=== PATIENT | female | born 1970 | race Caucasian/White ===

== ENCOUNTER 2020-04-28 10:56 | Outpatient (CLI) | payer BC, SELFPAY ==
--- NOTE | 2020-04-28 11:00 | MM_ITS ---
WS: [id number] BILATERAL SCREENING DIGITAL MAMMOGRAM WITH CAD HISTORY: SCREENING COMPARISON: 03/14/2019 and 03/03/2018 Bilateral CC and MLO views submitted. Computer aided detection analyzed. Breast composition: There are scattered areas of fibroglandular density. No suspicious masses, microc alcifications or architectural distortion. MM/[place] [id number] IMPRESSION: BI-RADS: 1-Negative FOLLOW UP: 1 Year Follow-up
== END 2020-04-28 10:57 | disposition home or self-care (01) ==
LOC: RADSHAW 10:59
PROVIDERS: PCP Family Medicine; Visit Provider Family Medicine
DX: Z12.31 Encounter for screening mammogram for malignant neoplasm of breast (principal); Z12.4 Encounter for screening for malignant neoplasm of cervix
CPT/HCPCS: 77067; 88175

== ENCOUNTER → 2020-05-14 10:54 | Outpatient (BNVA) | payer BC, SELFPAY | PROVIDERS: PCP Family Medicine; Visit Provider Internal Medicine | DX: R79.89 Other specified abnormal findings of blood chemistry (principal); I10 Essential (primary) hypertension; Z86.39 Personal history of other endocrine, nutritional and metabolic disease; Z98.890 Other specified postprocedural states | CPT/HCPCS: 99204 ==

== ENCOUNTER 2021-05-20 07:48 | Outpatient (CLI) | payer BC, SELFPAY ==
--- NOTE | 2021-05-20 07:52 | MM_ITS ---
WS: [id number] SCREENING DIGITAL MAMMOGRAM WITH CAD HISTORY: Screening. COMPARISON: 04/28/2020 and 03/14/2019 Bilateral CC and MLO views submitted. Computer aided detection analyzed. Breast composition: There are scattered areas of fibroglandular density. No suspicious masses, microc alcifications or architectural distortion. MM/[place] [id number] IMPRESSION: BI-RADS: 1-Negative FOLLOW UP: 1 Year Follow-up
== END 2021-05-20 07:49 | disposition home or self-care (01) ==
LOC: RADSHAW 07:50
PROVIDERS: PCP Family Medicine; Visit Provider Family Medicine
DX: Z12.31 Encounter for screening mammogram for malignant neoplasm of breast (principal)
CPT/HCPCS: 77067

== ENCOUNTER → 2021-09-24 07:35 | Outpatient (BNVA) | payer BC, SELFPAY | PROVIDERS: PCP Family Medicine; Visit Provider Urology | DX: R31.0 Gross hematuria (principal) | CPT/HCPCS: 81003 ==

== ENCOUNTER 2021-11-20 09:12 | Outpatient (CLI) | payer BC, SELFPAY ==
--- NOTE | 2021-11-20 09:30 | CT_ITS ---
WS: [id number] CT ABDOMEN PELVIS TECHNIQUE: Noncontrast CT of the abdomen and contrast-enhanced CT of the abdomen and pelvis with lior nal and sagittal reformatted images. CLINICAL INFORMATION: Gross Hematuria COMPARISON: CT March 13, 2014 DLP: 3069.[address] scans at [facility] [place] use at least one of these dose optimization techniques: automated e xposure control; mA and/or kV adjustment per patient size (includes targeted exams where dose is matc hed to clinical indication); or iterative reconstruction. FINDINGS: Multiple nonobstructing RIGHT calyceal tip calculi progressed compared 2014. Multiple subcentimeter L EFT calyceal tip calculi. No obstructing renal or ureteral calculi. Normal renal parenchymal enhancement. Bilateral renal cysts largest in the RIGHT measuring 1.7 CM. So me are too small to characterize. Normal adrenal glands. Normal liver. Cholecystectomy clips. Normal GE junction. Normal spleen. Normal pancreatic parenchymal enhancement. Normal celiac and SMA.Normal appendix in the RIGHT lower quadrant. Normal caliber abdominal aorta. Normal sigmoid colon. Tiny fat-containing umbilical hernia. No abdomi nal or pelvic lymphadenopathy. No inguinal lymphadenopathy. Central disc protrusion L4-L5 with modera te central canal stenosis and impingement traversing L5 nerve roots bilaterally. This appears progres sed compared 2014. Mild disc bulging L2-L3 and L3-L4. Lung bases are well aerated. CT/CT abdomen pelvis wo/w [id number] IMPRESSION: 1. Multiple subcentimeter nonobstructing calyceal tip calculi bilaterally. 2. Normal renal parenchymal enhancement. No hydronephrosis. Bilateral renal cy sts. Largest in the RIGHT measuring 1.7 CM. Some of the low-attenuation renal l esions are too small to characterize. 3. Prior cholecystectomy. 4. Central disc protrusion L4-L5 with moderate central canal stenosis and impi ngement traversing L5 nerve roots bilaterally. This appears progressed compared to 2014. This can be further evaluated with MRI.
[2021-11-20] MEDS: iohexol 350 mg/mL 100 mL Btl IV (10:42)
== END 2021-11-20 09:13 | disposition home or self-care (01) ==
PROVIDERS: PCP Family Medicine; Visit Provider Family Medicine
DX: N30.21 Other chronic cystitis with hematuria (principal)
CPT/HCPCS: 74178; 81003; 87086; 88112

== ENCOUNTER → 2022-03-02 15:49 | Outpatient (BNVA) | payer BC, SELFPAY | PROVIDERS: PCP Family Medicine; Visit Provider Internal Medicine | DX: Z98.890 Other specified postprocedural states (principal); R79.89 Other specified abnormal findings of blood chemistry | CPT/HCPCS: 80053; 82310; 83970; 84100 ==

== ENCOUNTER 2022-06-30 15:04 | Outpatient (CLI) | payer BC, SELFPAY ==
--- NOTE | 2022-06-30 15:22 | MR_ITS ---
WS: [id number] MRI BRAIN WITH HIGH-RESOLUTION IMAGING THROUGH THE INTERNAL AUDITORY CANALS WITHOUT AND WITH CONTRAST HISTORY: Unspecified SENSORINEURAL HEARING LOSS, SUDDEN HEARING LOSS LT EAR COMPARISON: None available. TECHNIQUE: Multiplanar, multisequence imaging is performed through the brain. Additional 3 mm imaging performed in multiple planes through the internal auditory canal. Postcontrast imaging with 20 ml's of MultiHance. No acute intracranial hemorrhage, midline shift, edema or mass effect. Diffusion-weighted images are normal. No prior infarct or T2 signal abnormalities within the brain pa renchyma. There is no mass effect at the cerebellopontine angle. Ventricles and extra-axial spaces are normal. No inferior displacement of the cerebellar tonsils. On the postcontrast imaging there is a nonenhanci ng mass in the base of the sella turcica. Mass is just slightly lobulated and mildly heterogeneous me asuring 10 x 8 x 4 mm. No deviation of the optic chiasm or infundibulum. Mass is centered central and just to the LEFT of midline. Intensely enhancing extra-axial mass along the RIGHT frontal dura there is a small axial tail. This m ass measures 9 x 8 x 8 mm and is most consistent with a hemangioma. No cortical edema. There is very slight contact and displacement of the frontal lobe cortex. No signal abnormality within the bone. No additional extra-axial masses. Internal and external auditory canals: Unremarkable. Cranial nerves VII and VIII complexes: Unremarkable. No enhancement or mass. Cerebellopontine angles: Normal. Paranasal sinuses: Small mucous retention cyst LEFT maxillary sinus. Otherwise sinuses are clear. Mastoid air cells: Normal. Calvarium and scalp: Normal. Visualized [place] and dural venous sinuses demonstrate no abnormality. MR/MR iac's wo/w con* [id number] IMPRESSION: 1. No signal abnormality or mass at the internal auditory canals. 2. Mildly heterogeneous mass associated with pituitary gland measures 9 x 8 x 8 mm. Most consistent with pituitary microadenoma. With no prior studies recomm end follow-up MRI brain with contrast dedicated pituitary gland in 3 months to document long-term stability. 3. RIGHT frontal extra-axial mass consistent with a meningioma measures 9 x 8 x 8 mm.
== END 2022-06-30 15:05 | disposition home or self-care (01) ==
PROVIDERS: PCP Family Medicine; Visit Provider Otolaryngology
DX: H91.22 Sudden idiopathic hearing loss, left ear (principal); E23.6 Other disorders of pituitary gland
CPT/HCPCS: 70553; A9577

== ENCOUNTER 2023-10-13 13:37 | Outpatient (RCR) | payer BC, SELFPAY | END 2023-10-16 23:59 | disposition home or self-care (01) | LOC: SPT 13:37 | PROVIDERS: PCP Internal Medicine Hematology & Oncology; Visit Provider Family Medicine | DX: I89.0 Lymphedema, not elsewhere classified (principal) | CPT/HCPCS: 97161 ==

== ENCOUNTER 2023-10-17 06:00 | Outpatient (RCR) | payer BC, SELFPAY | END 2023-11-15 23:59 | disposition home or self-care (01) | LOC: SPT 06:00 | PROVIDERS: PCP Internal Medicine Hematology & Oncology; Visit Provider Family Medicine | DX: I89.0 Lymphedema, not elsewhere classified (principal) | CPT/HCPCS: 97140 ==

== ENCOUNTER 2024-11-15 15:20 | Outpatient (CLI) | payer BC, SELFPAY ==
--- NOTE | 2024-11-15 15:20 | MM_ITS ---
WS: [id number] BILATERAL 3D TOMOSYNTHESIS DIGITAL SCREENING MAMMOGRAPHY WITH CAD CLINICAL INFORMATION: SCREENING HISTORY: Screening mammogram. No current complaints. COMPARISON: 2020 TECHNIQUE: Bilateral CC and MLO views. FINDINGS: Scattered fibroglandular densities bilaterally. No suspicious focal mass, asymmetry, calcifications, or architectural distortion. No evidence of malignancy. Vascular calcifications. MM/MM scr tomosynthesis [id number] IMPRESSION: DENSITY: There are scattered areas of fibroglandular density. BI-RADS: 2 - Benign. FOLLOW UP: 1 Year Follow-up Recommend return to annual screening mammography.
== END 2024-11-15 15:21 | disposition home or self-care (01) ==
LOC: MOBLMAM 15:22
PROVIDERS: PCP Family Medicine; Visit Provider Family Medicine
DX: Z12.31 Encounter for screening mammogram for malignant neoplasm of breast (principal); R92.323 Mammographic fibroglandular density, bilateral breasts; R92.1 Mammographic calcification found on diagnostic imaging of breast
CPT/HCPCS: 77063; 77067

== ENCOUNTER 2025-06-17 05:44 | Inpatient (IN) | payer BC, SELFPAY ==
[2025-06-17] VITALS (10 sets, daily range): BP systolic 119–184; BP diastolic 66–97; PULSE 100–114; RESP 16–24; TEMP 36.6–36.8; O2SAT 87–97; BMI 34.8; BMI 37.3
--- OUTSIDE RECORDS SUMMARY | 2025-06-17 05:50 | XMS_ITS | Continuity of Care Document ---
Author Organization [facility] [place] [facility], L.LNavarroCNavarro, [facility] ([facility]) Address [address] [place] [address] Care Team Providers Care Hairspring Staker Name Role Phone LILIANA DE JESUS Primary Care Provider Unavailabl e Assessment No assessment recorded. Plan of Treatment Reminders Order Date Submit Date Provider Last Modified By Organization Details Last Modified Time Details Appointments None record ed. Lab None record ed. Referral None record ed. Procedures None record ed. Surgeries None record ed. Imaging None record ed. Medication Orders None record ed. Patient TargetsNo targets recorded. Patient InstructionsNo instructions recorded. Reason for Referral None Reported. Problems Name Problem SNOMED Code Status Onset Date Resolution Date Notes Provider Name and Address Organization Details Recorded Time Hemorrho idectomy Completed 200912/28/2024 Hemorrho idectomy ; Date: 2009; Recorded 05/10/20 11:11AM by Liban Mercado, Office Visit; Promoted ; acuity set as *; LIBAN stanley [facility] 5 16:30:31 Ganglion cyst Active 2021 Gangliio n Cyst; R Long Finger, excised 1998, Dr. Barajas.; 05/10/20 11:11AM by Liban Mercado, Office Visit; Promoted ; acuity set as *; LIBAN stanley [facility], [facility].L[facility]CN[facility] 5 16:30:19 Herpes labialis 7079332 Active 2021 Herpes Labialis ; Recorded 10/24/20 22 11:11AM by Liban Mercado, Office Visit; Promoted ; acuity set as *; LIBAN stanley [facility], [facility] 5 16:30:19 Family planning surveill ance Active 2022 DEPO-PRO VERA CONTRACE PTION, ENCOUNTE R FOR INJECTIO N; Recorded 09/22/19 23 12:25PM by Anjelica fitzpatrick, Injectio n Only; Promoted ; acuity set as *; DEPO-[place] OVERA CONTRACE PTION, ENCOUNTE R FOR INJECTIO N; Recorded 01/15/20 2:50PM by Asmita Booker LPN, Annotati on/Adden dum; Promoted ; acuity set as *; ; Start Date : 01/15/20 DEPO CONTRACE PTION; Recorded 01/15/20 2:50PM by Asmita Booker LPN, Annotati on/Adden dum; Promoted ; acuity set as *; ; Start Date : 01/15/20 LIBAN stanley [facility] 5 16:30:19 Recurren t hematuri a 861277111 [facility] 16:30:19 Urinary incontin ence 000741406 Active [address] [facility] 5 16:30:19 Venous stasis edema of left lower limb 54954602218 232640 Active [address] [facility] 5 16:30:19 Lymphede ma of left lower limb 10024429601 554390 Active [address] [facility] 5 16:30:19 [facility] hyperten viraj 99980015 [facility] 20[facility] 16:30:19 Pain of left knee joint 43728870178 4107 Active 2023 [facility] 16:30:19 Problem Notes None recorded. Procedures Surgical History Date Name Laterality Status Provider Name and Address Organization Details Recorded Time 12/08/19 25 colonoscopy completed [address], [address], [facility], ShengCNavarro 12/09/2024 15:43:28 11/16/19 25 Most Recent Mammogram completed [facility], [place] 11/15/2024 16:49:09 11/16/19 25 mammography completed [address], [id number], LBrenda 11/15/2024 17:07:32 08/18/19 08 operation on parathyroid gland completed [facility], LNavarroLNavarroCNavarro 11/15/2024 16:57:46 arthroscopy of knee completed [facility], LNavarroLNavarroCNavarro 11/15/2024 16:57:55 reconstruction of vagina completed [facility], MarkellLNavarroCNavarro 11/15/2024 16:58:27 cholecystectomy completed [facility], L.LNavarroCNavarro 11/15/2024 16:58:33 excision of ganglion cyst completed [facility], LNavarroLNavarroCNavarro 11/15/2024 16:59:00 Imaging Results None recorded. Procedure Notes None recorded. Medical Equipment None Reported. Allergies Allergen ID Allergen Name Allergen Category Reaction Reaction Severity Criticality Documentation Date Start Date Code Code System Note Provider Name and Address Organization Details Recorded Time 75314 Bactrim medicatio n Not available Not available Not available 02/12/2023 51985 9 RxNorm Comme nt: Recor ded 05/10 11:11 AM by Eliecer pierre, Offic e Visit ; Gilles young; Vaughn allen ce: *; Reaso n: Drug aller gy; ; Not Available [facility] 3 02:29:02 66679 Substance with sulfonami de structure and antibacte rial mechanism of action (substanc e) medicatio n Not available Not available Not available 07/03/2023 [address] [facility], [facility] 3 17:06:11 Medications Name Sig Start Date Stop Date Status Note LastModified by Organization Details LastModified Time amoxicill in 500 mg capsule TAKE 1 CAPSULE BY MOUTH EVERY 8 HOURS UNTIL GONE active Not Available Not Available No t Available cefuroxim e axetil 250 mg tablet TAKE 1 TABLET BY MOUTH EVERY 12 HOURS FOR 7 DAYS 11/15 completed Not Available Not Available Not Available prednison e 20 mg tablet TAKE 2 TABLETS BY MOUTH EVERY DAY FOR 5 DAYS 09/22 completed Not Available Not Available Not Available fluoroura cil 5 % topical cream APPLY THIN LAYER TO AFFECTED AREAS TWICE DAILY FOR 14 DAYS. active Not Available Not Available No t Available ciproflox acin 250 mg tablet TAKE 1 TABLET BY MOUTH TWICE A DAY 09/22 completed Not Available Not Available Not Available aspirin 81 mg tablet,de layed release daily active 0; Recorded 05/10/20 22 11:11AM by Liban Mercado, Office Visit; Not Available Not Available Not Available nitrofura ntoin macrocrys roberta 100 mg capsule TAKE 1 CAPSULE BY MOUTH TWICE A DAY FOR 7 DAYS 12/27 completed Not Available Not Available Not Available lisinopri l 10 mg tablet TAKE 1 TABLET BY MOUTH EVERY DAY 2024 active Not Available Not Available Not Avai lable fluticaso ne propionat e 50 mcg/actua tion nasal spray,roger pension daily 2021 active Recorded 04/16/20 22 3:48PM by Liban Mercado, Office Visit; Refill Quantity : 0; Not Available Not Available Not Available medroxypr ogesteron e 150 mg/mL intramusc ular suspensio n Inject 1 mL every 3 months by intramus cular route as directed . 2024 active next injectio n due 08/27-08/19 4 pt is aware and calendar was given. Pt. brought med. AV Not Available Not Available Not Available amoxicill in 875 mg-potass ium clavulana te 125 mg tablet TAKE 1 TABLET BY MOUTH EVERY 12 HOURS FOR 10 DAYS 09/22 completed Not Available Not Available Not Available medroxypr ogesteron e 150 mg/mL intramusc ular syringe INJECT 1ML INTRAMUS CULARLY EVERY 3 MONTHS active Not Available Not Available No t Available nitrofura ntoin monohydra te/macroc rystals 100 mg capsule TAKE 1 CAPSULE BY MOUTH TWICE A DAY FOR 7 DAYS 11/15 completed Not Available Not Available Not Available magnesium Daily 12/27 completed 0; Recorded 05/10/20 22 11:11AM by Liban Mercado, Office Visit; Not Available Not Available Not Available cranberry Daily active 0; Recorded 05/10/20 22 11:11AM by Liban Mercado, Office Visit; Not Available Not Available Not Available Vitamin D daily active 0; Recorded 05/10/20 22 11:11AM by Liban Mercado, Office Visit; Not Available Not Available Not Available Multivita mins daily 12/27 completed 0; Recorded 05/10/20 22 11:11AM by Liban Mercado, Office Visit; Not Available Not Available Not Available Guaifenis en/Pseudo ephedrine two times daily 12/27 completed Recorded 05/10/20 22 11:11AM by Liban Mercado, Office Visit; Refill Quantity : 18; Tablet; Not Available Not Available Not Available Xarelto 10 mg tablet TAKE 1 TABLET BY MOUTH EVERY DAY 2024 active Not Available Not Available Not Avai lable Eliquis 2.5 mg tablet TAKE 1 TABLET BY MOUTH TWICE A DAY 12/27 completed Not Available Not Available Not Available Eliquis two times daily 09/22 completed Recorded 09/10/19 23 7:54AM by Liliana De Jesus MD, Refill Request; Refill Quantity : 180; Tablet; Not Available Not Available Not Available Mucus D 60 mg-600 mg tablet,ex tended release TAKE 1 TABLET BY MOUTH TWICE A DAY active Not Available Not Available No t Available Vitals None Recorded Social History Question Answer Notes LastModified by Mashups Details LastModified Time Tobacco Smoking Status Never Smoker ANJELICA AMESCECY stanley, [facility] 09/23/2023 14:02:14 What Was The Date Of Your Most Recent Tobacco Screening? 11/15/2024 [email or web address] Information not available 11/15/2024 Sex: Unknown Functional Status Question Answer Note LastModified by Mashups Details LastModified Time Do you use any illicit or recreational drugs? No [email or web address] Information not available 11/15/2024 What is your level of alcohol consumption? Occasional [email or web address] Information not available 09/23/2023 Mental Status None recorded. Family History Nothing Reported. Medical History Condition Response Allergies/Hayfever Y Heart Problems N Coronary Artery Disease N Gout N Blood Diseases N Kidney Stones N Blood Transfusion N Breast Cancer N Thyroid Problems Y GI Problems N Lung Disease N COPD N Depression N ADD/ADHD N Eating Disorder N Skin Problems Y Breast Problem N Anemia N Constipation N Anesthesia Complications N Mental Illness N Ovarian Cancer N Diabetes N Anxiety Disorder N Muscle, Joint, or Bone Problems N Vision or Eye Problems Y Seizures/Epilepsy N Arthritis Y Tuberculosis N Eczema N Cancer Y Diverticulitis N Stroke N Asthma N Endometriosis Y Bladder or Kidney Problems Y Reflux/GERD N High Cholesterol N Hepatitis N Liver Disease N Heart Disease N Pulmonary Embolism N Fibromyalgia N Headaches N Hypertension Y Osteoporosis N Kidney Disease N Gynecological History Statement/Question Response Most Recent Mammogram 11/15/2024 Obstetrics History GPAL:G 0 P 0 0 0 0 Immunizations Vaccine Type Date Status Note Provider Nam e and Address Organization Details Recorded Time Tdap 5 completed ELIZABETH stanley [facility] 11/15/2024 17:34:07 Pneumococcal conjugate PCV20, polysaccharide [id number] conjugate, adjuvant, PF 5 completed ELIZABETH stanley [facility] 11/15/2024 17:34:29 Tdap 8 completed Not Available [facility] 02/12/2023 02:50:42 zoster recombinant 2 completed LIBAN stanley, [facility] 12/28/2023 14:06:43 zoster recombinant 2 completed LIBAN IZQUIERDORIS null, [facility] 12/28/2023 14:06:44 COVID-19, mRNA, LNP-S, PF, 100 mcg/0.5mL dose or 50 mcg/0.25mL dose 1 completed LIBAN IZQUIERDORIS null, [facility] 12/28/2023 14:06:44 COVID-19, mRNA, LNP-S, PF, 100 mcg/0.5mL dose or 50 mcg/0.25mL dose 1 completed LIBAN IZQUIERDOKEN stanley, [facility] 12/28/2023 14:06:44 Past Encounters Encounter ID Performer Location Encounter Start Date Encounter Closed Date Diagnosis/Indication Diagnosis SNOMED-CT Code Diagnosis ICD10 Code Diagnosis IMO Codes Diagnosis Note [id number] Liliana De Jesus MD [facility] ([facility]) [address] [place] [phone] 03/26/2025 12:38:18 03/26/2025 13:37:40 Health Concerns Section Related Observation LastModified by Organization Detai ls LastModified Time None Recorded Concern Status LastModified by Organization Details LastModified Time None Recorded Payers Encounter Date Sequence Insurance Name Policy Number Policy [place] Covered Member ID [place] Member ID Guarantor Name 03/26/2025 1 [place] [id number] 2 Sierra R Roverto [id number] Sierra R Roverto OBGyn Episode No OBEpisode recorded.
--- OUTSIDE RECORDS SUMMARY | 2025-06-17 05:50 | XMS_ITS | Patient Health Record ---
Author Organization [facility] Address [address] [place] [address] Care Team Providers Care Director Of Property Management Name Role Phone Imer De Jesus Primary Care Provider Anjelica Dougherty Unavailable [phone] Dread Avina Unavailable Unavailable Allergies Allergen (clinical drug ingredient) Drug/Non Drug Allergy documented on EMR Reaction Allergy Type Onset Date Status Substance with sulfonamide structure and antibacterial mechanism of action (substance) Sulfa Antibiotics Unknown Drug Allergy Active Reason For Referral No Information Medications Medication SIG (Take, Route, Frequency, Duration) Notes Start Date End Date Status Aspirin 81 81 MG Tablet Delayed Release 1 tablet Orally Once a day Active Cranberry 500 MG Capsule as directed Orally Active Magnesium Active Vitamin D Active Apple Cider Vinegar Active Macrobid 100 MG Capsule 1 capsule with f ood Orally every 12 hrs Active Multi Adult Gummies - Tablet Chewable as directed Orally Active Lisinopril Active Eliquis 2.5 MG Tablet as directed Orally BID Active Social History Tobacco Use: Social History Observation Description Date Details (start date - stop date) Never Smoker NA - NA Social History Drugs/Alcohol: Social Info Question Answer Notes Alcohol Screen (Audit-C) Did you have a drink containing alcohol in the past year? Yes How often did you have a drink containing alcohol in the past year? 2 to 3 times a week (3 points) How many drinks did you have on a typical day when you were drinking in the past year? 1 or 2 drinks (0 point) Points 3 Interpretation Positive Drugs Have you used drugs other than those for medical reasons in the past 12 months? No Tobacco Use: Social Info Question Answer Notes xTobacco Use/Smoking Are you a nonsmoker Problems Problem Type SNOMED Code ICD Code Onset Dates Problem Status W/U Status Risk Notes Problem Gross hematuria (656967903) Gross hematuria (R31.0) Active confirmed Problem Nephrolithiasis (88044437) Nephrolithiasis (N20.0) Active confirmed Problem Hyperparathyroidism (21360695) Hyperparathyroidism (E21.3) Active confirmed Problem Recurrent nephrolithiasis (2757859698142800) Recurrent nephrolithiasis (N20.0) Active confirmed Problem Medullary cystic kidney (322560627) Medullary sponge kidney of both kidneys (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) Active confirmed Problem Kidney stone (28092749) Bilateral kidney stones (N20.0) Active confirmed Problem Medullary sponge kidney (530496407) Medullary sponge kidney (Q61.5) Active confirmed Problem Hypoparathyroidism (37522260) S/P parathyroidectomy (E89.2) Active confirmed Plan Of Treatment Pending Test Test Name Order Date Basic Metabolic Panel (BMP) 95157 2022 Basic Metabolic Panel (BMP) 44261 2022 Uric Acid (B) 77367 11/01/2022 Uric Acid (B) 40797 11/01/2022 Insurance Providers Payer Name Payer Address Payer Phone Subscriber Number Group Number Insured Name Patient Relationship to Insured Coverage Start Date Coverage End Date [place] [address] [place] [address] [id number] Sierra Layne Self - patient is the insured Medical (General) History Medical History History ICD Code mumps Chicken Pox Arthritis skin cancer hypertension Back Trouble hemorrhoids chronic bladder infections Surgical History Surgery Date(Month/Year) cholecystectomy - [place], [place] parathyroidectomy - [facility] 8 (L) knee clean up 05/2011 (R) hand cyst Eyelid - [place] - [facility] [place] Hospitalization History Reason Date(Month/Year) see above
--- OUTSIDE RECORDS SUMMARY | 2025-06-17 05:51 | XMS_ITS | Continuity of Care Document ---
Author Organization [facility] Shannon, L.LNavarroCNavarro, [facility] ([facility]) Address [address] [place] [address] Care Team Providers Care Wharf Tender Head Name Role Phone LILIANA DE JESUS Primary [...] ; acuity set as *; LIBAN stanley [facility], L.L.CNavarro 5 16:30:31 Ganglion cyst Active 2021 Gangliio n Cyst; R Long Finger, excised 1998, Dr. Barajas.; 05/10/20 11:11AM by Liban Mercado, Office Visit; Promoted ; acuity set as *; LIBAN stanley [facility], L.L.CNavarro 5 16:30:19 Herpes labialis 3637791 Active 2021 Herpes Labialis ; Recorded 10/24/20 22 11:11AM by Liban Mercado, Office Visit; Promoted ; acuity set as *; LIBAN stnaley [facility], L.L.CNavarro 5 16:30:19 Family planning surveill ance Active 2022 DEPO-PRO VERA CONTRACE PTION, ENCOUNTE R FOR INJECTIO N; Recorded 09/22/19 23 12:25PM by Anjelica fitzpatrick, Injectio n Only; Promoted ; acuity set as *; DEPO-CA OVERA CONTRACE PTION, ENCOUNTE R FOR INJECTIO N; Recorded 01/15/20 2:50PM by Asmita Booker LPN, Annotati on/Adden dum; Promoted ; acuity set as *; ; Start Date : 01/15/20 DEPO CONTRACE PTION; Recorded 01/15/20 2:50PM by Asmita Booker LPN, Annotati on/Adden dum; Promoted ; acuity set as *; ; Start Date : 01/15/[address] [facility], L.L.C. 5 16:30:19 Recurren t hematuri a 391780913 [facility] 16:30:19 Urinary incontin ence 782761392 Active 2023 LIBAN MERCADO [facility], [facility] 5 16:30:19 Venous stasis edema of left lower limb [id number] 531931 Active 2023 LIBAN MERCADO [facility] L[facility] 5 16:30:19 Lymphede ma of left lower limb 66831413982 552503 Active 2023 LIBAN MERCADO [facility] L[facility] 5 16:30:19 Essentia l hyperten viraj 42230510 [facility] 16:30:19 Pain of left knee joint 44699697733 4107 Active 2023 [facility] MarkellLMinda 16:30:19 Problem Notes None recorded. Procedures Surgical History Date Name Laterality Status Provider Name and Address Organization Details Recorded Time 12/08/19 25 colonoscopy completed [address], [address], [facility], ShengCNavarro 12/09/2024 15:43:28 11/16/19 25 Most Recent Mammogram completed [facility], Bozena 11/15/2024 16:49:09 11/16/19 25 mammography completed [address], [id number], LBernda 11/15/2024 17:07:32 08/18/19 08 operation on parathyroid gland completed [facility], LNavarroLNavarroCNavarro 11/15/2024 16:57:46 arthroscopy of knee completed [facility], LNavarroLNavarroCNavarro 11/15/2024 16:57:55 reconstruction of vagina completed [facility], MarkellLNavarroCNavarro 11/15/2024 16:58:27 cholecystectomy completed [facility], L.LNavarroCNavarro 11/15/2024 16:58:33 excision of ganglion cyst completed [facility], LNavarroLNavarroCNavarro 11/15/2024 16:59:00 Imaging Results None recorded. Procedure Notes None recorded. Medical Equipment None Reported. Allergies Allergen ID Allergen Name Allergen Category Reaction Reaction Severity Criticality Documentation Date Start Date Code Code System Note Provider Name and Address Organization Details Recorded Time 37830 Bactrim medicatio n Not available Not available Not available 02/12/2023 49287 9 RxNorm Comme nt: Recor ded 05/10 11:11 AM by Eliecer pierre, Offic e Visit ; Gilles young; Vaughn allen ce: *; Reaso n: Drug aller gy; ; Not Available [facility] 3 02:29:02 87442 Substance with sulfonami de structure and antibacte rial mechanism of action (substanc e) medicatio n Not available Not available Not available 07/03/2023 91208 8003 SNOMED Hanna Polk [facility], [facility] 3 17:06:11 Medications Name Sig Start Date [...] Social History Question Answer Notes LastModified by TextualAdsizCapptain Details LastModified Time Tobacco Smoking Status Never Smoker ANJELICA AMESCECY stanley, [facility], L[facility] 09/23/2023 14:02:14 What Was The Date Of Your Most Recent Tobacco Screening? 11/15/2024 [email or web address] Information not available 11/15/2024 Sex: Unknown Functional Status Question Answer Note LastModified by Trunkbow Details LastModified Time Do you use any illicit or recreational drugs? No [email or web address] Information not available 11/15/2024 What is your level of alcohol consumption? Occasional [email or web address] Information not available 09/23/2023 Mental Status None recorded. Family History Nothing Reported. Medical History Condition Response Coronary Artery Disease N Gout N Kidney Stones N Blood Diseases N Breast Cancer N Blood Transfusion N COPD N Depression N Lung Disease N Breast Problem N Anesthesia Complications N Anxiety Disorder N Muscle, Joint, or Bone Problems N Vision or Eye Problems Y Arthritis Y Cancer Y Stroke N Endometriosis Y Bladder or Kidney Problems Y High Cholesterol N Liver Disease N Fibromyalgia N Headaches N Kidney Disease N Allergies/Hayfever Y Heart Problems N Thyroid Problems Y GI Problems N ADD/ADHD N Skin Problems Y Eating Disorder N Anemia N Constipation N Mental Illness N Ovarian Cancer N Diabetes N Seizures/Epilepsy N Tuberculosis N Eczema N Diverticulitis N Asthma N Reflux/GERD N Hepatitis N Heart Disease N Pulmonary Embolism N Hypertension Y Osteoporosis N Gynecological History Statement/Question Response Most Recent Mammogram 11/15/2024 Obstetrics History GPAL:G 0 P 0 0 0 0 Immunizations Vaccine Type Date Status Note Provider Nam e and Address Organization Details Recorded Time Tdap [address] [facility] 11/15/2024 17:34:07 Pneumococcal conjugate PCV20, polysaccharide [id number] conjugate, adjuvant, PF [address] [facility], L[facility] 11/15/2024 17:34:29 Tdap 8 completed Not Available [facility] 02/12/2023 02:50:42 zoster recombinant 2 completed LIBAN stanley, [facility] 12/28/2023 14:06:43 zoster recombinant 2 completed LIBAN MERCADO null, [facility] 12/28/2023 14:06:44 COVID-19, mRNA, LNP-S, PF, 100 mcg/0.5mL dose or 50 mcg/0.25mL dose 1 completed LIBAN IZQUIERDORIS null, [facility] 12/28/2023 14:06:44 COVID-19, mRNA, LNP-S, PF, 100 mcg/0.5mL dose or 50 mcg/0.25mL dose 1 completed LIBAN IZQUIERDOKEN stanley, [facility] 12/28/2023 14:06:44 Past Encounters Encounter ID Performer Location Encounter Start Date Encounter Closed Date Diagnosis/Indication Diagnosis SNOMED-CT Code Diagnosis ICD10 Code Diagnosis IMO Codes Diagnosis Note [id number] Liliana De Jesus MD [facility] ([facility]) [address] [place] [phone] 06/11/2025 16:36:11 06/12/2025 09:48:31 Health Concerns Section Related Observation LastModified by Organization Detai ls LastModified Time None Recorded Concern Status LastModified by Organization Details LastModified Time None Recorded Payers Encounter Date Sequence Insurance Name Policy Number Policy Farnsworth Covered Member ID Farnsworth Member ID Guarantor Name 06/11/2025 1 [place] [id number] 2 Sierra R Roverto [id number] 14 Sierra R Roverto OBGyn Episode No OBEpisode recorded.
--- OUTSIDE RECORDS SUMMARY | 2025-06-17 05:51 | XMS_ITS | Continuity of Care Document ---
Author Organization [facility], [place], [facility] ([facility]) Address [address] [place] [address] Care Team Providers Care Retort Load Expediter Name Role Phone LILIANA DE JESUS Primary Care Provider Unavailabl e Assessment No assessment recorded. Plan of Treatment Reminders Order Date Submit Date Provider Last Modified By Organization Details Last Modified Time Details Appointments None recorded. Lab PTH (parathyr oid hormone), intact, serum or plasma 025 [employer] [facility], [address] [place] [address], [facility] [address] [place], [address], 5 08:05:23 BMP, serum or plasma - ALL LABS ORDERED BY DR BAGLEY/ WILL FAX YF 025 [facility], [address], [facility] 1, [place], [address], 5 10:58:55 vitamin D, 25-hydrox y, total, serum 025 025 [employer] [facility], [address] [place] [address] [address], [address], [place], [address], 5 08:05:23 phosphoru s, serum or plasma 025 025 [employer] [facility], [address] [place] [address] [address], [address], [place], [address], 08:05:23 Referral None recorded. Procedures None recorded. Surgeries None recorded. Imaging None recorded. Medication Orders None recorded. Patient TargetsNo targets recorded. Patient InstructionsNo instructions recorded. Reason for Referral None Reported. Results Created Date Observation Date Name Description Value Unit Range Abnormal Flag Note LastModifiedBy Organization Detail LastModifiedTime 04/12/2004/12/2025 BMP (FEMA LE) glucose 107.0 mg/dL 60.0-9 9.0 high Not Available [facility] [address] [facility] 1, [place], [address], 04/12/2025 10:58:55 04/12/2004/12/2025 BMP (FEMA LE) BUN (blood urea nitrogen) 15.0 mg/dL 10.0-2 6.0 Not Available [facility] [address] [facility] 1, [place], [address], 04/12/2025 10:58:55 04/12/2004/12/2025 BMP (FEMA LE) creatinine (serum) 1.0 mg/dL 0.4-1. 5 Not Available [facility] [address] [facility] [address], [place], [address], 04/12/2025 10:58:55 04/12/2004/12/2025 BMP (FEMA LE) BUN/creatini ne ratio 15.00 ratio Not Available [facility] [address] [facility] [address], [place], [address], 04/12/2025 10:58:55 04/12/2004/12/2025 BMP (FEMA LE) calcium 9.2 mg/dL 8.4-10 .5 Not Available [facility] [address] [facility] [address], [place], [address], 04/12/2025 10:58:55 04/12/2004/12/2025 BMP (FEMA LE) sodium 141.0 mmol/ L 136.0- 145.0 Not Available [facility] [address] [facility] [address], [place], [address], 04/12/2025 10:58:55 04/12/20 25 04/12/2025 BMP (FEMA LE) potassium 4.5 mmol/ L 3.5-5. 1 Not Available [facility] [address] [facility] 1, [place], [address], 04/12/2025 10:58:55 04/12/20 25 04/12/2025 BMP (FEMA LE) chloride 107.0 mmol/ L 98.0-1 10.0 normal Not Available [facility] [address] [facility] 1, [place], [address], 04/12/2025 10:58:55 04/12/20 25 04/12/2025 BMP (FEMA LE) C02 28.0 mmol/ L 22.0-3 1.0 Not Available [facility] [address] [facility] 1, [place], [address], 04/12/2025 10:58:55 04/12/20 25 04/12/2025 BMP (FEMA LE) anion gap 6.0 calc Not Available [facility] [address] [facility] 1, [place], [address], 04/12/2025 10:58:55 04/12/20 25 04/14/2025 PHOSP HATE ( PHOSP HORUS ) phosphate ( phosphorus) 4.3 mg/dL 2.5-4. 5 normal Not Available [facility] [address] [place], [address], 04/14/2025 08:05:23 04/12/2004/14/2025 PTH, INTAC T WITHO UT CALCI UM parathyroid hormone, intact 20 pg/mL 16-77 normal Inter preti ve Guide Intac t PTH Calci um ----- ----- ----- --- ----- ----- ----- -- Amelia l Parat hyroi d Amelia l Amelia l Hypop cassy yroid ism Low or Low Amelia l Low Hyper parat hyroi dism Prima ry Amelia l or High High Secon bacilio High Amelia l or Low Terti faustino High High Non-P cassy yroid Hyper calce jorden Low or Low Amelia l High Not Available [facility] [address] [address], [place], [address], 04/14/2025 08:05:23 04/12/2004/14/2025 VITAM IN D,25- OH,TO ROBERTA,I A vitamin D,25-oh,tota l,ia 62 NG/mL 30-100 normal Vitam in D Statu s 25-OH Vitam in D: Defic iency : <20 ng/mL Insuf ficie ncy: 20 - 29 ng/mL Optim al: > or = 30 ng/mL For 25-OH Vitam in D testi ng on patie nts on D2-soni pplem entat ion and patie nts for whom quant itati on of D2 and D3 fract ions is requi red, the Quest Assur eD(TM ) 25-OH VIT D, (D2,D 3), LC/MS /MS is recom radha d: order code 59863 (tracey ents >2yrs ). See Note 1 Note 1 For addit ional infor irene howard refer to http: //darcie King stDsarah gnost ics.c om/fa q/FAQ 199 (This link is being provi ded for infor kera lopez/ carmine he ses only. ) Not Available [facility] [address] [place], [address], 04/14/2025 08:05:23 Result Notes None recorded. Problems Name Problem SNOMED Code Status Onset Date Resolution Date Notes Provider Name and Address Organization Details Recorded Time Hemorrho idectomy Completed 200912/28/2024 Hemorrho idectomy ; Date: 2009; Recorded 05/10/20 11:11AM by Liban Nguyen, Office Visit; Promoted ; acuity set as *; LIBAN stanley [facility] 5 16:30:31 Ganglion cyst Active 2021 Gangliio n Cyst; R Cristino Lopez, excised 1998, Dr. Barajas.; 05/10/20 11:11AM by Liban Nguyen, Office Visit; Promoted ; acuity set as *; LIBAN stanley [facility], L.L.CNavarro 5 16:30:19 Herpes labialis 6718041 Active 2021 Herpes Labialis ; Recorded 05/10/20 11:11AM by Liban Nguyen, Office Visit; Promoted ; acuity set as *; LIBAN stanley [facility], L.L.CNavarro 5 16:30:19 Family planning surveill ance Active 2022 DEPO-PRO VERA CONTRACE PTION, ENCOUNTE R FOR INJECTIO N; Recorded 09/22/19 12:25PM by Anjelica fitzpatrick, Injectio n Only; Promoted ; acuity set as *; DEPO-SD OVERA CONTRACE PTION, ENCOUNTE R FOR INJECTIO N; Recorded 01/15/20 22 2:50PM by Asmita Booker LPN, Annotati on/Adden dum; Promoted ; acuity set as *; ; Start Date : 01/15/20 DEPO CONTRACE PTION; Recorded 01/15/20 2:50PM by Asmita Booker LPN, Annotati on/Adden dum; Promoted ; acuity set as *; ; Start Date : 01/15/20 LIBAN stanley [facility] 5 16:30:19 Recurren t hematuri a 276043202 Active 2022 LIBAN stanley [facility], L.L.CNavarro 5 16:30:19 Urinary incontin ence 124703769 Active [address] [facility] NGUYEN [facility], [facility] 16:30:19 Venous stasis edema of left lower limb 94073563078 902727 Active 2023 [facility], [facility] 5 16:30:19 Lymphede ma of left lower limb 17863746570 276394 Active 2023 [facility], L[facility]C. 16:30:19 Essentia l hyperten viraj 48249710 Active 2023 [facility], L.L.CNavarro 5 16:30:19 Pain of left knee joint 15520884228 [address] [facility] 16:30:19 Problem Notes None recorded. Procedures Surgical History Date Name Laterality Status Provider Name and Address Organization Details Recorded Time 12/08/19 25 colonoscopy completed ML SHAH [address] [place] [address], [phone], [facility], Bozena 12/09/2024 15:43:28 11/16/19 25 Most Recent Mammogram completed ELIZABETH GARRISON [facility], [place] 11/15/2024 16:49:09 11/16/19 25 mammography completed ML SHAH [address] [place] [address], [phone], [facility], Bozena 11/15/2024 17:07:32 08/18/19 08 operation on parathyroid gland completed ELIZABETH GARRISON [facility], [place] 11/15/2024 16:57:46 arthroscopy of knee completed EDGARDO GARRISON [facility], LBrenda 11/15/2024 16:57:55 reconstruction of vagina completed [facility], HarrisonKleber 11/15/2024 16:58:27 cholecystectomy completed [facility], Bozena 11/15/2024 16:58:33 excision of ganglion cyst completed [facility], Bozen[place] 11/15/2024 16:59:00 Imaging Results None recorded. Procedure Notes None recorded. Medical Equipment None Reported. Allergies Allergen ID Allergen Name Allergen Category Reaction Reaction Severity Criticality Documentation Date Start Date Code Code System Note Provider Name and Address Organization Details Recorded Time 46869 Bactrim medicatio n Not available Not available Not available 02/12/2023 18343 9 RxNorm Comme nt: Recor ded 05/10 11:11 AM by Eliecer pierre, Offic e Visit ; Promo hector; Signi alejandro ce: *; Reaso n: Drug aller gy; ; Not Available [facility] 3 02:29:02 29953 Substance with sulfonami de structure and antibacte rial mechanism of action (substanc e) medicatio n Not available Not available Not available 07/03/2023 80976 8003 SNOMED Hanna Polk [facility], LBrenda 3 17:06:11 Medications Name Sig Start Date [...] 0; Recorded 05/10/20 22 11:11AM by Liban Nguyen, Office Visit; Not Available Not Available Not [...] spray,roger pension daily 2021 active Recorded 04/16/20 3:48PM by Liban Nguyen, Office Visit; Refill Quantity : 0; Not [...] 0; Recorded 05/10/20 22 11:11AM by Liban Nguyen, Office Visit; Not Available Not Available Not Available cranberry Daily active 0; Recorded 05/10/20 22 11:11AM by Liban Nguyen, Office Visit; Not Available Not Available Not Available Vitamin D daily active 0; Recorded 05/10/20 22 11:11AM by Liban Nguyen, Office Visit; Not Available Not Available Not Available Multivita mins daily 12/27 completed 0; Recorded 05/10/20 22 11:11AM by Liban Nguyen, Office Visit; Not Available Not Available Not Available Guaifenis en/Pseudo ephedrine two times daily 12/27 completed Recorded 05/10/20 22 11:11AM by Liban Nguyen, Office Visit; Refill Quantity : 18; Tablet; [...] Social History Question Answer Notes LastModified by Warby Parker Details LastModified Time Tobacco Smoking Status Never Smoker ANJELICA stanley, [facility] 09/23/2023 14:02:14 What Was The Date Of Your Most Recent Tobacco Screening? 11/15/2024 [email or web address] Information not available 11/15/2024 Sex: Unknown Functional Status Question Answer Note LastModified by [email or web address] Behavio Details LastModified Time Do you use any illicit or recreational drugs? No [email or web address] Information not available 11/15/2024 What is your level of alcohol consumption? Occasional [email or web address] Information not available 09/23/2023 Mental Status None recorded. Family History Nothing Reported. Medical History Condition Response Coronary Artery Disease N Gout N Blood Diseases N Kidney Stones N Blood Transfusion N Breast Cancer N Lung Disease N Depression N COPD N Breast Problem N Anesthesia Complications N Anxiety Disorder N Muscle, Joint, or Bone Problems N Vision or Eye Problems Y Arthritis Y Cancer Y Stroke N Endometriosis Y Bladder or Kidney Problems Y High Cholesterol N Liver Disease N Headaches N Fibromyalgia N Kidney Disease N Allergies/Hayfever Y Heart [...] Details Recorded Time Tdap 5 completed ELIZABETH stanley, [facility] 11/15/2024 17:34:07 Pneumococcal conjugate PCV20, polysaccharide [id number] conjugate, adjuvant, PF 5 completed ELIZABETH stanley, [facility] 11/15/2024 17:34:29 Tdap 8 completed Not Available [facility] 02/12/2023 02:50:42 zoster recombinant 2 completed LIBAN stanley [facility] 12/28/2023 14:06:43 zoster recombinant 2 completed LIBAN stanley [facility] 12/28/2023 14:06:44 COVID-19, mRNA, LNP-S, PF, 100 mcg/0.5mL dose or 50 mcg/0.25mL dose 1 completed LIBAN stanley [facility] 12/28/2023 14:06:44 COVID-19, mRNA, LNP-S, PF, 100 mcg/0.5mL dose or 50 mcg/0.25mL dose 1 completed LIBAN stanley [facility] 12/28/2023 14:06:44 Past Encounters Encounter ID Performer Location Encounter Start Date Encounter Closed Date Diagnosis/Indication Diagnosis SNOMED-CT Code Diagnosis ICD10 Code Diagnosis IMO Codes Diagnosis Note [id number] Liliana De Jesus MD [facility] ([facility]) [address] [place] [address] 03/26/2025 12:38:18 03/26/2025 13:37:40 [id number] Liliana De Jesus MD [facility] ([facility]) [address] [place] [address] 04/12/2025 09:44:07 04/15/2025 10:04:39 Blood chemistry outside reference range 194250749 R79.89 786295 History of Disorder 3128 80647 Z86.39 4659081 Hypokalemia 65048174 E87 .6 9791 History of primary hyperparathyroidism 2329002585 9106 Z86.39 [id number] Health Concerns Section Related Observation LastModified by Organization Detai ls LastModified Time None Recorded Concern Status LastModified by Organization Details LastModified Time None Recorded Payers Encounter Date Sequence Insurance Name Policy Number Policy Farnsworth Covered Member ID Farnsworth Member ID Guarantor Name 04/12/2025 1 [place] [id number] 2 Sierra Layne [id number] Sierra Layne OBGyn Episode No OBEpisode recorded.
--- OUTSIDE RECORDS SUMMARY | 2025-06-17 05:51 | XMS_ITS | Data Portability ---
Author Organization [facility] [place] [facility] [place] [facility], [facility], [facility] Address [address] [address] Care Team Providers Care Multifocal Button Grinder Name Role Phone LILIANA DE JESUS Primary Care Provider Unavailabl e Assessment No assessment recorded. Plan of Treatment Reminders Order Date Submit Date Provider Last Modified By Organization Details Last Modified Time Details Appointments None recorded. Lab PTH (parathyroi d hormone), intact, serum or plasma 2024 025 [employer] [facility], [address] [place] [address], [facility] [address] [facility] [place], [address], 5 08:05:23 BMP, serum or plasma - ALL LABS ORDERED BY DR BAGLEY/ WILL FAX YF 2024 025 [facility], [address] [facility], [facility], [place], [address], 5 10:58:55 vitamin D, 25-hydroxy, total, serum 2024 025 [employer] [facility], [address] [place] [address] 248, [address], [place], [address], 5 08:05:23 phosphorus, serum or plasma 2024 025 [employer] [facility], [address] [place] [address], [address], [place], [address], 08:05:23 noninvasive colorectal cancer DNA + occult blood screening, QL, stool 2024 025 [employer] [place], [address], [place], [address], 08:58:49 Referral None recorded. Procedures None recorded. Surgeries None recorded. Imaging None recorded. Medication Orders medroxyprog esterone 150 mg/mL intramuscul ar suspension 2024 025 [email or web address] [id number] Not available 12:33:09 Patient TargetsNo targets recorded. Patient InstructionsNo instructions recorded. Reason for Referral None Reported. Results Created Date Observation Date Name Description Value Unit Range Abnormal Flag Note LastModifiedBy Organization Detail LastModifiedTime 10/25/1910/24/2024 URINA LYSIS WITH MICRO color YELLOW Not Available [facility] [address], [address], 10/24/2024 12:34:58 10/25/19 25 10/24/2024 URINA LYSIS WITH MICRO clarity CLEAR Not Available [facility] [address], [address], 10/24/2024 12:34:58 10/25/19 25 10/24/2024 URINA LYSIS WITH MICRO glu NEGATI VE Not Available [facility] [address], [address], 10/24/2024 12:34:58 10/25/19 25 10/24/2024 URINA LYSIS WITH MICRO bili NEGATI VE Not Available [facility] [address], [address], 10/24/2024 12:34:58 10/25/19 25 10/24/2024 URINA LYSIS WITH MICRO ket NEGATI VE Not Available [facility] [address] [place], [address], 10/24/2024 12:34:58 10/25/19 25 10/24/2024 URINA LYSIS WITH MICRO S.g 1.025 Not Available [facility] [address] [facility] [address], [place], [address], 10/24/2024 12:34:58 10/25/19 25 10/24/2024 URINA LYSIS WITH MICRO pH 7.0 Not Available [facility] [address] [facility] [address], [place], [address], 10/24/2024 12:34:58 10/25/19 25 10/24/2024 URINA LYSIS WITH MICRO pro 1+ abnormal Not Available [facility] [place] [facility] [address] [facility] 1, [place], [address], 10/24/2024 12:34:58 10/25/19 25 10/24/2024 URINA LYSIS WITH MICRO uro 1.0 E.U./D L Not Available [facility] [address] [facility] 1, [place], [address], 10/24/2024 12:34:58 10/25/19 25 10/24/2024 URINA LYSIS WITH MICRO nit NEGATI VE Not Available [facility] [address] [facility] 1, [place], [address], 10/24/2024 12:34:58 10/25/19 25 10/24/2024 URINA LYSIS WITH MICRO blo 3+ abnormal Not Available [facility] [place] [facility] [address] [facility] 1, [place], [address], 10/24/2024 12:34:58 10/25/19 25 10/24/2024 URINA LYSIS WITH MICRO eder 1+ abnormal Not Available [facility] [place] [facility] [address] [facility] 1, [place], [address], 10/24/2024 12:34:58 10/25/19 25 10/24/2024 URINA LYSIS WITH MICRO WBC 8-10 abnormal Not Available [facility] [place] [facility] [address] [facility], [place], [address], 10/24/2024 12:34:58 10/25/19 25 10/24/2024 URINA LYSIS WITH MICRO RBC 25-30 abnormal Not Available [facility] [place] [facility] [address] [facility], [place], [address], 10/24/2024 12:34:58 10/25/19 25 10/24/2024 URINA LYSIS WITH MICRO epi cells 10-12 abnormal Not Available [facility] [address] [facility] [address], [place], [address], 10/24/2024 12:34:58 10/25/19 25 10/24/2024 URINA LYSIS WITH MICRO bacteria 1+ MIXED DRISS abnormal Not Available [facility] [address] [facility] [address], [place], [address], 10/24/2024 12:34:58 10/25/19 25 10/24/2024 URINA LYSIS WITH MICRO other NG Not Available [facility] [address] [facility] [address], [place], [address], 10/24/2024 12:34:58 10/25/19 25 10/26/2024 CULTU RE, URINE , ROUTI NE culture, urine, routine SEE NOTE abnormal CULTU RE, URINE , ROUTI NE Micro Numbe r: [id number] Test Statu s: Final Speci men Sourc e: Urine , clean catch Speci men Quali ty: Adequ ate Resul t: 10,00 0-49, 000 CFU/m L of Esche zulma a coli E.col i ----- ----- ----- - INT TEREZA AMOX/ CLAVU LANAT E S 4 AMP/S ULBAC BABB I 16 CEFAZ PATRICIO R >=64 1 CEFEP JONN S 2 CEFTA ZIDIM E S 2 CEFTR IAXON E R >=64 CIPRO FLOXA ACACIA I 0.5 GENTA MICIN R >=16 IMIPE NEM S <=0.2 5 LEVOF LOXAC IN I 1 MEROP ENEM S <=0.2 5 NITRO FURAN TOIN S <=16 PIP/T AZOBA CTAM S <=4 TRIME THOPR IM/BUSTILLO LFA R >=320 S = Susce ptibl e I = Inter media te R = Resis tant NS = Not susce ptibl e SDD = Susce ptibl e Dose Depen dent * = Not Teste d NR = Not Repor hector NN = See Thera py Comme nts THERA PY COMME NTS Note 1: For uncom plica hector UTI cause d by E. coli, K. pneum oniae or P. mirab ilis: Cefaz patricio is susce ptibl e if TEREZA <32 mcg/m L and predi cts susce ptibl e to the oral agent s cefac patricia, cefdi stephan, cefpo doxim e, cefpr ozil, cefur oxime , cepha lexin and lorac arbef . Not Available [facility] [address] [place], [address], 10/26/2024 11:23:05 11/30/19 25 11/29/2024 COLOG UARD cologuard result reportable NEGATI VE negati ve normal The Colog uard (TM) test was perfo rmed on this speci men. NEGAT FLORI TEST RESUL T. A negat flori Colog uard resul t indic ates a low likel ihood that a color ectal cance r (CRC) or advan mt adeno ma (stas omato us polyp s with more advan mt pre-m align ant featu res) is prese nt. The chanc e that a perso n with a negat flori Colog uard test has a color ectal cance r is less than 1 in 1500 (nega tive predi ctive value >99.9 %) or has an advan mt adeno ma is less than 5.3% (nega tive predi ctive value 94.7% ). These data are based on a prosp ectiv e cross -sect ional study of 10,00 0 indiv idual s at mentor ge risk for color ectal cance r who were scree fabricio with both Colog uard and colon oscop y. (Rhoda Heredia. et al, N Engl J Med 2014; 370(1 4):12 86-12 97) The amelia l value (refe rence range ) for this assay is negat flori. COLOG UARD RE-SC REENI NG RECOM MENDA TION: Perio dic color ectal cance r scree blanche is an impor tant part of preve ntive healt hcare for asymp tomat ic indiv idual s at mentor ge risk for color ectal cance r. Follo wing a negat flori Colog uard resul t, the Ameri can Cance r Socie ty and U.S. Multi -Soci ety Task Force scree blanche guide lines recom mend a Colog uard re-sc reeni ng inter horace of 3 years . Refer ences : Ameri can Cance r Socie ty Guide line for Color ectal Cance r Scree blanche: https ://salvador rowe.can cer.o rg/ca ncer/ colon -rect al-ca ncer/ detec tion- diagn osis- stagi ng/ac s-rec ommen datio ns.ht ml.; Joo ROMERO, Madina vallejo CR, Kang COTA, Color ectal Cance r Scree blanche: Recom menda tions for Physi cians and Patie nts from the U.S. Multi -Soci ety Task Force on Color ectal Cance r Scree blanche , Am Marshall Gastr oente rolog y 2017; 112:1 016-1 030. TEST DESCR IPTIO N: [place] site algor ithmi c ervin sis of stool DNA-b iomar kers with hemog lobin immun oassa y. Quant itati ve value s of indiv idual bioma rkers are not repor table and are not assoc iated with indiv idual bioma rker resul t refer ence range s. Colog uard is inten ded for color ectal cance r scree blanche of adult s of eithe r sex, 45 years or older , who are at [facility] for color ectal cance r (CRC) . Colog uard has been appro pamela for use by the U.S. FDA. The perfo rmanc e of Colog uard was estab lishe d in a cross secti onal study of [facility] adult s aged 50-84 . Colog uard perfo rmanc e in patie nts ages 45 to 49 years was estim ated by emily-g madhav ervin sis of near- age group s. Colon oscop ies perfo rmed for a posit flori resul t may find as the most clini herman signi alejandro t meseret n: color ectal cance r [4.0% ], advan mt adeno ma (incl uding sessi le kerwin hector polyp s great er than or equal to 1cm diame ter) [20%] or non- advan mt adeno ma [31%] ; or no color ectal neopl polly [45%] . These estim ates are deriv ed from a prosp ectiv e cross -sect ional scree blanche study of 0 indiv idual s at [facility] risk for color ectal cance r who were scree fabricio with both Colog uard and colon oscop y. (Rhoda Gama et al, N Engl J Med 2014; 370(1 4):12 86-12 97.) Colog uard may produ ce a false negat flori or false posit flori resul t (no color ectal cance r or preca ncero us polyp prese nt at colon oscop y follo w up). A negat flori Colog uard test resul t does not guara ntee the absen ce of CRC or advan mt adeno ma (pre- cance r). The curre nt Colog uard scree blanche inter horace is every 3 years . (Amer ican Cance r Socie ty and U.S. Multi -Soci ety Task Force ). Colog uard perfo rmanc e data in a 0 patie nt pivot al study using colon oscop y as the refer ence metho d can be acces sed at the follo wing locat ion: www.e xactl abs.c om/re sulendy . Addit ional descr iptio n of the Colog uard test proce ss, warni ngs and preca ution s can be found at www.c lexy potter.c om. Not Available [facility] [address], [place], [address], 12/07/2024 18:24:01 04/12/2004/12/2025 BMP (FEMA LE) glucose 107.0 mg/dL 60.0-9 9.0 high Not Available [facility] [address] [facility] [address], [place], [address], 04/12/2025 10:58:55 04/12/20 25 04/12/2025 BMP (FEMA LE) BUN (blood urea nitrogen) 15.0 mg/dL 10.0-2 6.0 Not Available [facility] [address] [facility] [address], [place], [address], 04/12/2025 10:58:55 04/12/20 25 04/12/2025 BMP (FEMA LE) creatinine (serum) 1.0 mg/dL 0.4-1. 5 Not Available [facility] [address] [facility] [address], [place], [address], 04/12/2025 10:58:55 04/12/2004/12/2025 BMP (FEMA LE) BUN/creatini ne ratio 15.00 ratio Not Available [facility] [address] [facility] [address], [place], [address], 04/12/2025 10:58:55 04/12/20 25 04/12/2025 BMP (FEMA LE) calcium 9.2 mg/dL 8.4-10 .5 Not Available [facility] [address] [facility] [address], [place], [address], 04/12/2025 10:58:55 04/12/20 25 04/12/2025 BMP (FEMA LE) sodium 141.0 mmol/ L 136.0- 145.0 Not Available [facility] [address] [facility] 1, [place], [address], 04/12/2025 10:58:55 04/12/2004/12/2025 BMP (FEMA LE) potassium 4.5 mmol/ L 3.5-5. 1 Not Available [facility] [place] [facility] [address] [facility], [place], [address], 04/12/2025 10:58:55 04/12/2004/12/2025 BMP (FEMA LE) chloride 107.0 mmol/ L 98.0-1 10.0 normal Not Available [facility] [address] [facility], [place], [address], 04/12/2025 10:58:55 04/12/2004/12/2025 BMP (FEMA LE) C02 28.0 mmol/ L 22.0-3 1.0 Not Available [facility] [address] [facility] [address], [place], [address], 04/12/2025 10:58:55 04/12/2004/12/2025 BMP (FEMA LE) anion gap 6.0 calc Not Available [facility] [address] [facility] [address], [place], [address], 04/12/2025 10:58:55 04/12/2004/14/2025 PHOSP HATE ( PHOSP HORUS ) phosphate ( phosphorus) 4.3 mg/dL 2.5-4. 5 normal Not Available [facility] [address] , [place], [address], 04/14/2025 08:05:23 04/12/2004/14/2025 PTH, INTAC T WITHO [...] or Low Amelia l High Not Available [facility] [address] [place], [address], 04/14/2025 08:05:23 04/12/2004/14/2025 VITAM IN D,25- OH,TO AMANDA,I A vitamin D,25-oh,tota l,ia 62 NG/mL 30-100 normal Vitam in D Statu s 25-OH Vitam in D: Defic iency : <20 ng/mL Insuf ficie ncy: 20 - 29 ng/mL Optim al: > or = 30 ng/mL For 25-OH Vitam in D testi ng on patie nts on D2-bustillo pplem entat ion and patie nts for whom quant itati on of D2 and D3 fract ions is requi red, the [employer] Assur eD(TM ) 25-OH VIT D, (D2,D 3), LC/MS /MS is recom radha d: order code 83885 (tracey ents >2yrs ). See Note 1 Note 1 For addit ional infor irene howard refer to http: //darcie Edmond gnost ics.c om/fa q/FAQ 199 (This link is being provi ded for infor kera lopez/ educvero pham purpo ses only. ) Not Available [facility] [address] [place], [address], 04/14/2025 08:05:23 11/19/19 25 11/15/2024 MAMMO , scree blanche, digit al, bilat eral No observ ation record ed. [email or web address] [facility] [address] [place], [address], 11/19/2024 09:57:46 Result Notes None recorded. Problems Name Problem SNOMED Code Status Onset Date Resolution Date Notes Provider Name and Address Organization Details Recorded Time Hemorrho idectomy Completed 200912/28/2024 Hemorrho idectomy ; Date: 2009; Recorded 05/10/20 11:11AM by Liban Mercado, Office Visit; Promoted ; acuity set as *; LIBAN stanley [facility] 5 16:30:31 Ganglion cyst Active 2021 Gangliio n Cyst; R Cristino Lopez, excised 1998, Dr. Barajas.; 05/10/20 11:11AM by Liban Mercado, Office Visit; Promoted ; acuity set as *; LIBAN stanley [facility] 5 16:30:19 Herpes labialis 2555793 Active 2021 Herpes Labialis ; Recorded 05/10/20 11:11AM by Liban Mercado, Office Visit; Promoted ; acuity set as *; LIBAN stanley [facility] 5 16:30:19 Family planning surveill ance Active 2022 DEPO-PRO VERA CONTRACE PTION, ENCOUNTE R FOR INJECTIO N; Recorded 09/22/19 12:25PM by Anjelica fitzpatrick, Injectio n Only; Promoted ; acuity set as *; DEPO-[place] OVERA CONTRACE PTION, ENCOUNTE R FOR INJECTIO N; Recorded 01/15/20 22 2:50PM by Asmita oBoker LPN, Annotati on/Adden dum; Promoted ; acuity set as *; ; Start Date : 01/15/20 DEPO CONTRACE PTION; Recorded 01/15/20 2:50PM by Asmita Booker LPN, Bing on/Addanton dum; Promoted ; acuity set as *; ; Start Date : 01/15/20 [facility] 5 16:30:19 Recurren t hematuri a 063883660 Active [address]22 [facility] 5 16:30:19 Urinary incontin ence 835527845 Active [address]23 [facility] 16:30:19 Venous stasis edema of left lower limb 69397063161 457096 Active [address] [facility] 5 16:30:19 Lymphede ma of left lower limb 74680802213 434131 Active [address] [facility] 16:30:19 [facility] l hyperten viraj 31746498 Active [address] [facility] 5 16:30:19 Pain of left knee joint 41350996909 [address] [facility] 16:30:19 Problem Notes None recorded. Procedures Surgical History Date Name Laterality Status Provider Name and Address Organization Details Recorded Time 12/08/19 colonoscopy completed ML SHAH [address] [place] [address], [address], [facility] 12/09/2024 15:43:28 11/16/19 25 Most Recent Mammogram completed ELIZABETH GARRISON [facility] 11/15/2024 16:49:09 11/16/19 25 mammography completed MARTINEZ MICHAEL, PATIENT RELATIONS COORDINATOR [address] [place], [address], [facility] 11/15/2024 17:07:32 08/18/19 08 operation on parathyroid gland completed [facility] 11/15/2024 16:57:46 arthroscopy of knee completed [facility] 11/15/2024 16:57:55 reconstruction of vagina completed [facility], .LNavarroCNavarro 11/15/2024 16:58:27 cholecystectomy completed [facility], LNavarroCNavarro 11/15/2024 16:58:33 excision of ganglion cyst completed [facility] 11/15/2024 16:59:00 Imaging Results None recorded. Procedure Notes None recorded. Medical Equipment None Reported. Allergies Allergen ID Allergen Name Allergen Category Reaction Reaction Severity Criticality Documentation Date Start Date Code Code System Note Provider Name and Address Organization Details Recorded Time 82735 Bactrim medicatio n Not available Not available Not available 02/12/2023 24884 9 RxNorm Comme nt: Recor ded 05/10 11:11 AM by Eliecer pierre, Offic e Visit ; Promo hector; Signi ficmicky ce: *; Reaso n: Drug aller gy; ; Not Available [facility] 3 02:29:02 48288 Substance with sulfonami de structure and antibacte rial mechanism of action (substanc e) medicatio n Not available Not available Not available 07/03/2023 62593 8003 SNOMED [facility] 3 17:06:11 Medications Name Sig Start Date [...] Not Available Not Available nitrofura ntoin macrocrys amanda 100 mg capsule TAKE 1 CAPSULE BY [...] two times daily 12/27 completed Recorded 05/10/20 11:11AM by Liban Mercado, Office Visit; Refill [...] two times daily 09/22 completed Recorded 09/10/19 7:54AM by Liliana De Jesus MD, Refill Request; Refill Quantity : 180; Tablet; Not Available Not Available Not Available Mucus D 60 mg-600 mg tablet,ex tended release TAKE 1 TABLET BY MOUTH TWICE A DAY active Not Available Not Available No t Available Vitals Date Recorded Body height Body mass index (BMI) Body weight Body temperature Oxygen saturation Heart rate Respiratory rate Systolic And Diastolic Provider Name and Address Organization Details Last Updated DateTime 5 177.8 cm 37.3 kg/m2 746571. 02 g 97.3 [degF] 98 % 98 /min 18 /min 128/80 mm[Hg] ELIZABETH GARRISON [facility] 16:47:49 Social History Question Answer Notes LastModified by Organizat ion Details LastModified Time Tobacco Smoking Status Never Smoker ANJELICA stanley [facility] 09/23/2023 14:02:14 What Was The Date Of Your Most Recent Tobacco Screening? 11/15/2024 [email or web address] Information not available 11/15/2024 Sex: Unknown Functional Status Question Answer Note LastModified by Organizat ion Details LastModified Time Do you use any illicit or recreational drugs? No Information not available 11/15/2024 What is your level of alcohol consumption? Occasional avonallmen Information not available 09/23/2023 Mental Status None recorded. Family History Nothing Reported. Medical History Condition Response Coronary Artery Disease N Gout N Kidney Stones N Blood Diseases N Breast Cancer N Blood Transfusion N Lung Disease N COPD N Depression N Breast Problem N Anesthesia Complications N Anxiety Disorder N Muscle, Joint, or Bone Problems N Vision or Eye Problems Y Arthritis Y Cancer Y Stroke N Endometriosis Y Bladder or Kidney Problems Y High Cholesterol N Liver Disease N Fibromyalgia N Headaches N Kidney Disease N Allergies/Hayfever Y Heart Problems N Thyroid Problems Y GI Problems N ADD/ADHD N Eating Disorder N Skin Problems Y Anemia N Constipation N Mental Illness N [...] Recorded Time Tdap 5 completed ELIZABETH stanley [facility] 11/15/2024 17:34:07 Pneumococcal conjugate PCV20, polysaccharide ATM702 conjugate, adjuvant, PF 5 completed ELIZABETH stanley [facility] 11/15/2024 17:34:29 Tdap 8 completed Not Available [facility] 02/12/2023 02:50:42 zoster recombinant 2 completed LIBAN stanley [facility] 12/28/2023 14:06:43 zoster recombinant 2 completed LIBAN stanley [facility] 12/28/2023 14:06:44 COVID-19, mRNA, LNP-S, PF, 100 mcg/0.5mL dose or 50 mcg/0.25mL dose 1 completed LIBAN stanley [facility] 12/28/2023 14:06:44 COVID-19, mRNA, LNP-S, PF, 100 mcg/0.5mL dose or 50 mcg/0.25mL dose 1 completed LIBAN stanley [facility] 12/28/2023 14:06:44 Past Encounters Encounter ID Performer Location Encounter Start Date Encounter Closed Date Diagnosis/Indication Diagnosis SNOMED-CT Code Diagnosis ICD10 Code Diagnosis IMO Codes Diagnosis Note [id number] Liliana De Jesus MD [facility]) [address] [place] [address] [id number] 12/14/2022 15:05:59 01/17/2023 16:07:40 [id number] MELISSA KISER [facility]) [address] [place] [address] [id number] 5 03/14/2023 17:21:04 04/01/2023 17:27:37 Contraception care management 819019450 Z30.9 Seen by nurse 611132661 Z76.89 [id number] Liliana De Jesus MD [facility]) [address] [place] [address] [id number] 05/09/2023 17:25:52 05/10/2023 17:21:22 History of parathyroidectomy 5598160135 81313 Z90.89 [id number] Liliana De Jesus MD [facility] ([facility]) [address] [place] [address] [id number] 06/08/2023 17:26:29 06/08/2023 18:31:58 [id number] ANGÉLICA SINGLETON PATIENT RELATIONS COORDINATOR [facility]) [address] [place] [address] [id number] 5 07/03/2023 16:00:59 07/03/2023 17:20:15 [facility] [id number] J40 [id number] Jose F Chapman DO [facility] ([facility]) [address] [place] [address] [id number] 5 08/29/2023 16:30:10 08/29/2023 18:19:36 [id number] Jose F Chapman DO [facility] ([facility]) [address] [place] [address] [id number] 5 08/29/2023 16:36:47 08/29/2023 18:20:02 Contraception care management [id number] Z30.9 [id number] Liliana De Jesus MD [facility] ([facility]) [address] [place] [address] [id number] 08/29/2023 16:42:39 08/30/2023 11:39:48 Postoperative state 98942202 Z98.195 [id number] Liliana De Jesus MD [facility] ([facility]) [address] [place] [address] [id number] 5 09/20/2023 14:32:00 09/22/2023 09:40:32 [id number] Liliana De Jesus MD [facility] ([facility]) [address] [place] [address] [id number] 09/23/2023 13:40:16 09/23/2023 14:53:00 Urinary incontinence 822948170 R32 Venous sta sis edema of left lower limb 0065384566 0589023 I87.2 Lymphedema of left lower limb 8187122065 0658256 I89.0 Acute urin faustino tract infection 381850646 N39.0 [id number] ML ESCALERA [facility] ([facility]) [address] [place] [address] [id number] 5 11/15/2023 15:45:36 11/15/2023 18:54:23 Contraception care management [id number] Z30.9 [id number] Liliana De Jesus MD [facility] ([facility]) [address] [place] [address] [id number] 5 12/28/2023 14:02:01 12/28/2023 14:39:06 Lymphedema of left lower limb 8458213128 6583732 I89.0 improved with support stockings. Venous sta sis edema of left lower limb 4349018149 3133646 I87.2 [id number] Liliana De Jesus MD [facility] ([facility]) 12 [place] [address] [place] [address] 01/31/2024 12:13:32 01/31/2024 13:10:56 [id number] Liliana De Jesus MD [facility] ([facility]) [address] [place] [address] [phone] 5 04/23/2024 17:00:47 04/23/2024 17:57:23 [id number] Liliana De Jesus MD [facility] ([facility]) [address] [place] [address] [phone] 5 06/29/2024 14:07:01 07/02/2024 11:54:12 Essential hypertension 40687532 I10 Pain of le ft knee joint [id number] 69779 M25.562 suspect mild sprain in lateral collateral ligament. [id number] Alex Steiner MD [facility] ([facility]) [address] [place] [phone] 5 07/10/2024 10:21:28 07/10/2024 10:44:57 Contraception care management 833600341 Z30.9 [id number] Liliana De Jesus MD [facility] ([facility]) [address] [place] [address] [phone] 5 08/30/2024 08:03:05 08/31/2024 08:07:23 History of endocrine disorder 922345825 Z86.39 [id number] Liliana De Jesus MD [facility] ([facility]) [address] [place] [address] 64022-590 5 09/26/2024 17:46:35 09/27/2024 06:54:06 Contraception care management 663567642 Z30.9 [id number] ML SHAH [facility] ([facility]) [address] [place] [address] [phone] 5 11/15/2024 16:19:26 11/15/2024 17:43:46 Screening for malignant neoplasm of colon 061357966 Z12.11 Discussed option s for colon cancer screening. Questions answered. Patient elected cologuard testing. Requires d iphtheria, tetanus and pertussis vaccination 041527938 Z23 411218 Tdap administer ed today. Requires v accination against Streptococcus pneumoniae 5595435400 Z23 557834 Prevnar vaccine administer ed today. Depression screening 171 975689 Z13.31 596998 PAQH negative today. Tobacco us age screening 237852738 Z01.89 [id number] Never smoked. [id number] Liliana De Jesus MD [facility] ([facility]) [address] [place] [address] [phone] 5 12/28/2024 12:13:50 12/31/2024 09:00:40 Contraception care management 493266609 Z30.9 [id number] Liliana De Jesus MD [facility] ([facility]) [address] [place] [address] [phone] 5 03/26/2025 12:38:18 03/26/2025 13:37:40 [id number] Liliana De Jesus MD [facility]) [address] [place] [address] [phone] 5 04/12/2025 09:44:07 04/15/2025 10:04:39 Blood chemistry outside reference range 755015354 R79.89 [id number] History of Disorder 3128 13396 Z86.39 [id number] Hypokalemia 18612220 E87 .6 9791 History of primary hyperparathyroidism 2231045058 9106 Z86.39 [id number] Liliana De Jesus MD [facility] ([facility]) [address] [place] [address] [phone] 5 06/11/2025 16:36:11 06/12/2025 09:48:31 Health Concerns Section Related Observation LastModified by Organization Detai ls LastModified Time None Recorded Concern Status LastModified by Organization Details LastModified Time None Recorded Advance Directives Directive None Recorded Payers Insurance Date Sequence Insurance Name Policy Number Policy Farnsworth Covered Member ID Farnsworth Member ID Guarantor Name 06/11/2025 1 [place] [id number] 2 Sierra Layne [id number] Sierra Layne Notes Date Note Type Note Provider Name and Address Organization Details Recorded Time 11/15/2024 text/html Annual WellnessReported by PatientSocial/Behavior al HistoryFor diet and nutrition, patient reportshealthy diet. For fracture risk, patient reportsno history of fracturesandno sudden unexplained fractures. For physical activity, patient reportsexercises on a regular basis. For additional lifestyle factors, patient reportsno tobacco useanddrinks alcohol (mild-moderate).Mental Status:For depression risk, patient reportsno thoughts of suicideandno history of depression.Functional AbilityFor vision, patient reportsworse with distance. For hearing, patient reportsno loss of hearing.ROS as noted in the HPI Pt presents for Wellness Day.Mammo completed prior to visit today.Has never had colon cancer screening performed.Pneumococcal and Tdap vaccines due today. ML SHAH [address] [place] [address], [phone], [facility], L.Kleber 11/15/2024 17:36:05 OBGyn Episode No OBEpisode recorded.
--- OUTSIDE RECORDS SUMMARY | 2025-06-17 05:51 | XMS_ITS | Patient Health Record ---
Author Organization [facility], [facility] Address [address] [place] [address] Care Team Providers Care Bias Machine Operator Helper Name Role Phone Imer De Jesus Primary Care Provider ERVIN Baker Unavailable [phone] Dread Avina Unavailable Unavailable Allergies Allergen (clinical drug ingredient) Drug/Non Drug Allergy documented on EMR Reaction Allergy Type Onset Date Status Substance with sulfonamide structure and antibacterial mechanism of action (substance) Sulfa Antibiotics Unknown Drug Allergy Active Results Component Value Reference Range Notes Urinalysis, Routine Reviewed date:09/07/2024 11:02:45 AM Interpretation: Performing Lab: Notes/Report: Urine-Color yellow Appearance cloudy Glucose - Bilirubin - Ketones - Specific Logan 1.015 Occult Blood 3+ pH 6.0 Urine Protein 1+ Urobilinogen,Semi-Qn - Nitrite, Urine - WBC Esterase trace zzzAbdomen AP Reviewed date:09/07/2024 10:25:32 AM Interpretation: Performing Lab: Notes/Report: See Below For Report Abdomen AP Read See Below For Report Reason For Referral No Information Medications Medication SIG (Take, Route, Frequency, Duration) Notes Start Date End Date Status Vitamin D *Pick strength-form from Medis[employer] for eRX* Active Apple Cider Vinegar *Pick strength-form from Medispan for eRX* Active Magnesium *Pick strength-form from Med[employer] for eRX* Active Lisinopril *Pick strength-form from [employer] for eRX* Active Eliquis 2.5 MG as directed Orally BID Not-Taking Macrobid 100 MG 1 capsule with food Orally every 12 hrs Not-Taking Xarelto 10 MG 1 tablet with food Orally Once a day Active Depo-Provera Active Cranberry 500 MG as directed Orally *Pick strength-form from [employer] for eRX* Active Multi Adult Gummies - as directed Orally Active Aspirin 81 81 MG 1 tablet Orally Once a day *Pick strength-form from [employer] for eRX* Active Problems Problem Type SNOMED Code ICD Code Onset Dates Problem Status W/U Status Risk Notes Problem Gross hematuria (095019472) Gross hematuria (R31.0) Active confirmed Problem Kidney stone (00710946) Bilateral kidney stones (N20.0) Active confirmed Problem Nephrolithiasis (88102127) Nephrolithiasis (N20.0) Active confirmed Problem Recurrent nephrolithiasis (0895619435609767) Recurrent nephrolithiasis (N20.0) Active confirmed Problem Chronic cystitis (11535783) Chronic cystitis (N30.20) Active confirmed Problem Medullary cystic kidney (589620332) Medullary sponge kidney of both kidneys (Q61.5) Active confirmed Problem Hyperparathyroidism (93149777) Hyperparathyroidism (E21.3) Active confirmed Problem Medullary sponge kidney (598500693) Medullary sponge kidney (Q61.5) Active confirmed Problem Hypoparathyroidism (88773361) S/P parathyroidectomy (E89.2) Active confirmed Vital Signs Height-cm 177.8 cm 09/07/2024 Weight-kg 113.4 kg 09/07/2024 Height 70 in 09/07/2024 Weight 250 lbs 09/07/2024 BMI 35.87 kg/m2 09/07/2024 Encounters Encounter Location Date Provider Diagnosis [facility], [facility] [address] [place] [address] 09/07/2024 ERVIN CEDILLO Chronic cystitis N30 .20 ; Recurrent nephrolithiasis N20.0 and Medullary sponge kidney Q61.5 Assessments Encounter Date Diagnosis (ICD Code) Assessment Notes Treatment Notes Treatment Clinical Notes Section Notes 09/07/2024 Chronic cystitis (ICD-10 - N30.20) Asymptomatic today. No recent recurrence. She is to continue prevention regimen with daily cranberry supplementation. 09/07/2024 Recurrent nephrolithiasis (ICD-10 - N20.0) I have independently reviewed KUB imaging, along with radiologic report. She has small bilateral stones consistent with medullary sponge kidney. She has no flank pain. She is not interested in CT imaging to see if any are within collecting system to potentially ESWL. She will continue stone prevention recommendations as outlined by metabolic urine analysis. Repeat KUB in 1 year. 09/07/2024 Medullary sponge kidney (ICD-10 - Q61.5) Plan Of Treatment Pending Test Test Name Order Date [id number] KUB, X-Ray: Abdomen, Kidney, Urete r, bladder 02/28/2024 X ray : Abdomen, Kidneys, Ureters, and B ladder (KUB) with upright films 07/20/2023 Basic Metabolic Panel [id number] 11/01/2022 Basic Metabolic Panel 24519 11/01/2022 Uric Acid (B) 66936 11/01/2022 Uric Acid (B) 71151 11/01/2022 Bladder Scan 03/23/2023 Future Test Test Name Order Date X ray : Kidneys, Ureters and Bladder ([facility] B) 09/21/2023 Ultrasound : Kidneys and Bladder 024 X ray : Kidneys, Ureters and Bladder ([facility] B) 06/29/2024 Next Appt Details Provider Name:ERVIN Brianna GUEVARA NS, 09/12/2025 04:00:00 PM, [address] [place], [address], Insurance Providers Payer Name Payer Address Payer Phone Subscriber Number Group Number Insured Name Patient Relationship to Insured Coverage Start Date Coverage End Date [place] [address] [place], [place] [id number] Sierra Layne Self - patient is the insured Medical (General) History Medical History History ICD Code mumps Chicken Pox Arthritis skin cancer hypertension Back Trouble hemorrhoids chronic bladder infections Surgical History Surgery Date(Month/Year) cholecystectomy - [place] parathyroidectomy - [facility] 8 (L) knee clean up 05/2011 (R) hand cyst [place] [facility] Reason Date(Month/Year) see above
--- OUTSIDE RECORDS SUMMARY | 2025-06-17 05:51 | XMS_ITS ---
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 Current 12/01/2022 D32.9-BENIGN NEOPLASM OF MENINGES, UNSPECIFIED BENIGN NEOPLASM OF MENINGES, UNSPECIFIED Current 12/01/2022 G47.33-Obstructive sleep apnea (adult) (pediatric) Obstructive sleep apnea (adult) (pediatric) Current 12/01/2022 I42-Pulyshrwx (primary) hypertension Essential (primary) hypertension Current 12/01/2022 PROCEDURES Procedure Description Date Notes NO PROCEDURES PERFORMED ASSESSMENTS Assessment None PLAN OF TREATMENT Assessment Planned Activity LOINC Planned Rahul e None CONSULTATION NOTE Note Author Date None HISTORY AND PHYSICAL NOTE Note Author Date None PROGRESS NOTE Note Author Date None DISCHARGE SUMMARY Note Author Date None CHIEF COMPLAINT AND REASON FOR VISIT FUNCTIONAL STATUS Functional or Cognitive Find ing None MENTAL STATUS Cognitive Finding None ENCOUNTERS Encounter Type Provider Diagnoses Start Date Location Disc harged to None SOCIAL HISTORY Social Status Observation Unknown if ever smoked Sex: Female CARE TEAM INFORMATION Stock Repairer Provider ID Role Location Phone BRENDA HOLLAND [phone] [address] [place] [address] INSURANCE PROVIDERS Payer Name Policy type / Coverage type Covered democrat ID Policy Farnsworth [facility] Blue Cross/Blue Shield [id number] SELF
--- NOTE | 2025-06-17 05:58 | XRR_ITS ---
PROCEDURE INFORMATION: Exam: XR Chest Exam date and time: 06/17/2025 5:58 AM Age: 55 years old Clinical indication: Chest pressure; C/O chest pain TECHNIQUE: Imaging protocol: Radiologic exam of the chest. Views: 1 view. COMPARISON: CT abdomen pelvis wo/w [id number] 11/20/2021 10:06 AM FINDINGS: Lungs: Atelectasis or infiltrate at the left lung base. Otherwise the heart, lungs, and mediastinum Pleural spaces: Unremarkable. No pleural effusion. No pneumothorax. Heart/Mediastinum: See Lungs finding. Bones/joints: Unremarkable. XR/XR chest 1V portable [id number] IMPRESSION: Left lower lobe infiltrate.
--- NOTE | 2025-06-17 05:58 | ECG_ITS ---
[facility]: 2025-06-17 Pat Name: Sierra Layne Department: Room: Gender: Female Rn Urology: : 1970 Requested By: Nadege Terry Order Number: [id number] Hilary MD: Jason Cobos M.D. Measurements Intervals [place] Rate: 116 P: 32 [place]: 120 QRS: 36 QRSD: 85 T: 69 QT: 334 QTc: 465 Interpretive Statements SINUS TACHYCARDIA Possible left atrial enlargement MINIMAL ST DEPRESSION [0.025+ mV ST DEPRESSION] ABNORMAL RHYTHM ECG No previous ECG available for comparison Electronically Signed On 06-18-2025 20:05:03 ALL AROUND PRESSER by Jason Cobos M.D. [email or web address]
--- NOTE | 2025-06-17 05:59 | ED_ITS ---
HPI - Chest Pain 2 General: Chief Complaint: Chest Pain Stated Complaint: Chest Pains Time Seen by Provider: 06/17/25 05:58 History of Present Illness: 55-year-old female with a history of med ullary sponge kidney, DVT on chronic anticoagulation on Xarelto, hypertension who presents emergency room with left- sided chest pain and shortness of breath. She is slightly tachycardic. She tells me she takes Xarelto for her history of DVT but initially fails to mention that she has not been taking it for 3 weeks. She said she ran out and went back to get some on Tuesday and they did not have any so she was going to get it today. Pain became much worse and she told family about it so they finally made her come to the emergency room. She been hurting for a few days now. She is hypoxemic on presentation. She denies significant cough. No fever. Related Data Home Medications ?Medication ?Instructions ?Recorded ?Confirmed aspirin 81 mg tablet,delayed 81 mg PO DAILY 04/28/20 1 08/18/24 release cholecalciferol (vitamin D3) 25 25 mcg PO DAILY 06/17/25 mcg (1,000 unit) capsule lisinopril 10 mg tablet (Zestril) 10 mg PO DAILY 04/2806/17/25 medroxyprogesterone 150 mg/mL 150 mg IM .every three m [facility] 04/28/20 06/17/25 intramuscular suspension (Depo-Provera) multivitamin with minerals-folic 200 mcg PO DAILY 04/1706/17/25 acid 200 mcg chewable tablet (Women's Multivitamin Gummies) cranberry fruit concentrate 250 mg 250 mg PO TID PRN B [facility] 09/24/21 06/17/25 chewable tablet (Azo Cranberry) rivaroxaban 10 mg tablet (Xarelto) 10 mg PO DAILY 10/0906/17/25 acetaminophen 500 mg tablet 1,000 mg PO Q6H PRN Fever Or Pain 06/17/25 06/17/25 (Tylenol Extra Strength) magnesium 200 mg tablet 200 mg PO DAILY 06/17/2508/11 Allergies Allergy/AdvReac Type Severity Reaction Status Date / Time Sulfa (Sulfonamide Allergy Swelling Verified 10/18/24 10:17 Antibiotics) and blistering of lip Review of Systems 2 Narrative: Constitutional symptoms: Negative except as documented in HPI. Skin symptoms: Negative except as documented in HPI. Eye symptoms: Negative except as documented in HPI. ENMT symptoms: Negative except as documented in HPI. Respiratory symptoms: Negative except as documented in HPI. Cardiovascular symptoms: Negative except as documented in HPI. Gastrointestinal symptoms: Negative except as documented in HPI. Genitourinary symptoms: Negative except as documented in HPI. Musculoskeletal symptoms: Negative except as documented in HPI. Neurologic symptoms: Negative except as documented in HPI. Psychiatric symptoms: Negative except as documented in HPI. Endocrine symptoms: Negative except as documented in HPI. PFSH ED 2 PFSH: Medical History (Updated 06/17/25 @ 09:19 by Alvaro Ball MD) Medullary sponge kidney Bilateral renal stones Gross hematuria History of DVT (deep vein thrombosis) X 2 2010 and 2020 In 2010 after her left knee surgery she had a blood clot and was told that this was secondary to surgery. Was on blood thinners for about 6 months and was told she did not need lifelong anticoagulation. Chronic hypertension Diagnosed in 2012 and follows up with PMD. Does not have a landscape architecture teacher. No pertinent past medical history Denies diabetes, asthma, seizures, DVT/PE PCP: Dr. De Jesus Surgical History S/P cholecystectomy Laparoscopic procedure done at the age of 25 S/P laparoscopy laparoscopic procedure to try to identify cause of infertility but she states that everything was normal. S/P parathyroidectomy Unilateral parathyroidectomy in June 2017. Done in [place]. Status post surgery Skin cancer removal from face by Dr. Fuller--multiple History of vaginal surgery 1983-Performed in [place], [place] at the age of 14. -patient states that she had vaginal reconstructive surgery done through her abdomen and vagina to connect the uterus to her vagina. We have requested for these records multiple times however have never received them and it is likely that they do not have these records anymore. S/P left knee arthroscopy for torn meniscus Status post surgical removal of ganglion cyst from vaughn aspect of right hand S/P hemorrhoidectomy 09/11/2009- Dx: thrombosed external hemorrhoids. Performed by Dr Randle at [facility] in [place], [place]. Family History Mother Hypertension Sister Hypertension Family/Other Diabetes paternal uncle Breast cancer 2 paternal cousins, diagnosed in their mid 40s to early 50s Grandfather Stroke paternal Denies family history of Colon cancer Ovarian cancer Heart disease Uterine cancer Thyroid disease Social History Smoking and tobacco/nicotine status: never used tobacco/nicotine Physical Exam 2 Narrative: EXAM NARRATIVE: General: Alert, no acute distress. Skin: Warm, dry. Head: Normocephalic, atraumatic. Neck: Supple, trachea midline. Eye: Extraocular movements are intact. Ears, nose, mouth and throat: mucosa moist. Cardiovascular: Regular, tachycardic, Normal peripheral perfusion. Respiratory: Lungs are clear to auscultation, respirations are non-labored, breath sounds are equal, Symmetrical chest wall expansion. Gastrointestinal: Soft, Nontender, Non distended Musculoskeletal: Normal ROM, no deformity. Neurological: Alert and oriented, No focal neurological deficit observed. Psychiatric: Cooperative, appropriate mood & affect. 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 55-year-old female with a history of medullary sponge kidney, DVT on chronic anticoagulation on Xarelto, hypertension I reviewed the patient's current home meds Patient is on Xarelto for history of pulmonary embolism. She says she has not missed any doses Alternate historians: None Differential diagnosis for patient with chest pain includes but is not limited to and based on the above HPI, review of systems and physical exam: Pneumonia. unstable angina. angina. Acute coronary syndrome / [place]. Pulmonary embolism. Costochondritis / musculoskeletal. Pleurisy. Pericarditis. Esophageal spasm. Pancreatitis. Cholecystitis. Orders placed to evaluate differential diagnosis based on the above differential, HPI and physical exam EKG: Time 5:53 AM. Rate 116. Sinus tachycardia, minimal ST depression, no ectopy, normal [place] & QRS intervals, This was reviewed and interpreted by myself the ER physician at 5:59 AM Chest x-ray: Left lower lobe infiltrate. This was reviewed and interpreted by myself the emergency room physician. I also reviewed the radiology report. CTA chest with PE protocol: This was ordered secondary to abnormal chest x-ray and given her history of PE. At the time I was not aware of the she had not been taking her Xarelto. Patient has extensive pulmonary emboli but no signs of right heart strain. I discussed this with the radiologist on-call. This was reviewed and interpreted by myself the emergency room physician. I also reviewed the radiology report. CT abdomen pelvis with contrast: Given her history of medullary sponge kidney ordered to evaluate her abdomen as well as initially was concern for sepsis. I was under the impression she was taking her Xarelto. Bilateral renal cysts and stones. No acute process. No hydronephrosis. This was reviewed and interpreted by myself the emergency room physician. I also reviewed the radiology report. Lab Review: Laboratory results were reviewed and interpreted by myself the emergency room physician. Leukocytosis with a white count of 14,000, hemoglobin is normal. No renal failure. Lactate is normal. Initial troponin is mildly elevated at 16 Assessment of risk: Level of risk: High risk patient. History of blood clots off of her medications. Has several comorbidities. Requiring oxygen today. Hospitalization considerations: Patient requiring 4 L nasal cannula with new PEs. She has been off of her Xarelto. Requires admission. Clinical decision support: Heart score of 4. However chest pain seems to be due to pulmonary embolism not acute coronary syndrome Consultation: I spoke with Dr. Ball who is on-call for the hospitalist service who agrees to admission. Reexamination: Patient's heart rate has come down into the 90s. Blood pressures been stable with systolic of 120 at the time of admission. She still requiring 4 L nasal cannula. No increased work of breathing at rest. Assessment and plan: Pulmonary embolism Hypoxemia Medical noncompliance ?Initiating a heparin bolus and drip. ?Requiring 4 L nasal cannula ?Initially treated her for sepsis. Upon findings of a high white count and a left lower lobe infiltrate sepsis protocol was initiated -2.5 L normal saline bolus. Fluid volumes based on ideal body weight. -Broad-spectrum antibiotics were administered. Zyvox and meropenem -Sepsis quality measures. -Lactic acid with a reflex was ordered. -Blood cultures were ordered. ?I reevaluated the patient's volume status after sepsis fluids were given. -I discussed the patient with the hospitalist on-call who is admitting the patient. - Discussed findings and plan with patient. Answered any questions. - All laboratory values were reviewed and interpreted personally by myself, the ER physician - All imaging was reviewed and interpreted personally by myself, the ER physician. - Evaluation and treatment of this problem were appropriate in the emergency setting Critical Care: -I spent a total of 44 minutes of critical care time managing the patient, independent of any other practitioner. -The time involved in the performance of separately reportable procedures was not counted towards critical care time. Lab Data 06/17/25 06:11 06/17/25 06:11 Radiology Impressions Chest X-Ray 06/17/25 05:58 IMPRESSION: Left lower lobe infiltrate. Chest CTA 06/17/25 07:07 IMPRESSION: Extensive pulmonary embolus. Thrombus is seen within the right and left main pulmonary arteries as well as more distal branch vessels. ADDENDUM: 06/17/25824 THIS REPORT CONTAINS FINDINGS THAT MAY BE CRITICAL TO PATIENT CARE. The findings were verbally communicated via telephone conference with NORMAN PARSONS at 8:19 AM ACTOR UNDERSTUDY on 06/17/2025. The findings were acknowledged and understood. Abdomen/Pelvis CT 06/17/25 07:08 IMPRESSION: Moderate opacity at the left lung base. COMMENTS: Consistent with the [employer]'s Incidental Findings Committee white paper (J Am Kitty Radiol 2018): Any incidental renal lesion less than 1 cm or classified as too small to characterize, or any incidental cystic renal lesion characterized as simple-appearing, is likely benign. No follow-up imaging is recommended for these lesions per consensus recommendations based on imaging criteria. Laboratory Results WBC 13.78 10^3/uL (3.29-11.43) H 06/17/25 06:11 RBC 4.97 10^6/uL (3.85-5.65) 06/17/25 06:11 Hgb 14.00 g/dL (11.27-16.99) 06/17/25 06:11 Hct 43.7 % (36-47) 06/17/25 06:11 MCV 87.9 fl (85-98) 06/17/25 06:11 MCH 28.2 pg (27-33) 06/17/25 06:11 MCHC 32.0 g/dL (30-55) 06/17/25 06:11 RDW 15.1 % (12.1-15.1) 06/17/25 06:11 Plt Count 260 10^3/cmm (157-399) 06/17/25 06:11 MPV 9.5 fL (7.4-10.4) 06/17/25 06:11 Neut % (Auto) 78.2 % 06/17/25 06:11 Lymph % (Auto) 14.4 % 06/17/25 06:11 Crenshaw % (Auto) 5.4 % 06/17/25 06:11 Eos % (Auto) 1.2 % 06/17/25 06:11 Baso % (Auto) 0.4 % 06/17/25 06:11 Neut # (Auto) 10.78 10^3/uL (1.8-7.7) H 06/17/25 06:11 Lymph # (Auto) 2.0 10^3/uL (0.8-4.8) 06/17/25 06:11 Crenshaw # (Auto) 0.8 10^3/uL (0.2-0.9) 06/17/25 06:11 Eos # (Auto) 0.2 10^3/uL (0.0-0.8) 06/17/25 06:11 Baso # (Auto) 0.1 10^3/uL (0.0-0.1) 06/17/25 06:11 Nucleated RBC % (auto) 0 % 06/17/25 06:11 Nucleated RBCs # 0.0 /100WBC 06/17/25 06:11 PT 14.70 SECONDS (12.1-14.9) 06/17/25 06:11 INR 1.07 (0.8-1.2) 06/17/25 06:11 APTT 25.8 SECONDS (23.9-36.7) 06/17/25 06:11 Sodium 141 mmol/L (136-145) 06/17/25 06:11 Potassium 3.9 mmol/L (3.5-5.1) 06/17/25 06:11 Chloride 106 mmol/L (98-107) 06/17/25 06:11 Carbon Dioxide 19 mmol/L (22-29) L 06/17/25 06:11 Anion Gap 19.9 (5-19) H 06/17/25 06:11 BUN 14 mg/dL (6-20) 06/17/25 06:11 Creatinine 0.7 mg/dL (0.5-0.9) 06/17/25 06:11 GFR Calculation 86.9 mL/min (90-130) L 06/17/25 06:11 Glucose 102 mg/dL (65-115) 06/17/25 06:11 Calculated Osmolality 293 mOsm/kg (285-295) 06/17/25 06:11 Lactic Acid 0.9 mmol/L (0.5-2.2) 06/17/25 06:42 Calcium 9.0 mg/dL (8.5-10.5) 06/17/25 06:11 Total Bilirubin 1.2 mg/dL (0.15-1.2) 06/17/25 06:11 AST 21 U/L (0-32) 06/17/25 06:11 ALT 21 U/L (0-33) 06/17/25 06:11 Alkaline Phosphatase 65 U/L (35-105) 06/17/25 06:11 Troponin T Baseline 16 ng/L (0-10) H 06/17/25 06:11 Troponin T 120 Minute 19.18 ng/L (0-10) H 06/17/25 08:11 Delta Troponin T 3.18 ABS# (0-10) 06/17/25 08:11 NT-Pro-B Natriuret Pep 72 pg/mL (0-125) 06/17/25 06:11 Total Protein 7.6 g/dL (6.6-8.7) 06/17/25 06:11 Albumin 3.7 g/dL (3.5-5.2) 06/17/25 06:11 Globulin 3.9 g/dL (1.3-4.6) 06/17/25 06:11 Lipase 31 U/L (13-60) 06/17/25 06:11 Procalcitonin 0.10 ng/mL (0-0.5) 06/17/25 06:42 XR interpretation done by ED provider, pending radiology final review Clincial Decision Support The following clinical decision support tools were used to aid in care of the patient HEART Score -> History: Slightly Suspicous, EKG: Non-specific Changes, Age: 45- 64 yrs, Risk Factors: 1 or 2 Risk Factors, Troponin: Baseline Trop 16-45 ng/L. Resulting HEART Score: 4. Discharge Plan Discharge Patient Disposition: Admitted As Inpatient Clinical Impression: Hypoxemia, Medical non-compliance Pulmonary embolism Qualifiers: Pulmonary embolism type: other Chronicity: acute Acute cor pulmonale presence: without acute cor pulmonale Qualified Code(s): I26.99 - Other pulmonary embolism without acute cor pulmonale Condition: Stable Coding Level of Care Code ED Banquet Server for Chg Fwd Heart Score HEART Score Components History: Slightly Suspicous EKG: Non-specific Changes Age: 45-64 yrs Risk Factors: 1 or 2 Risk Factors Troponin: Baseline Trop 16-45 ng/L HEART Score RESULT HEART Score: 4
[2025-06-17 06:19] LABS: Hematocrit 43.7 % (36-47); Hemoglobin 14.00 g/dL (11.27-16.99); Mean Corpuscular HGB Conc 32.0 g/dL (30-55); Mean Corpuscular Hemoglobin 28.2 pg (27-33); Mean Corpuscular Volume 87.9 fl (85-98); Nucleated Red Blood Cells % 0 %; Platelet Count 260 10^3/cmm (157-399); Red Blood Count 4.97 10^6/uL (3.85-5.65); White Blood Count 13.78 10^3/uL (3.29-11.43)
[2025-06-17 06:33] LABS: Troponin(5th) Baseline 16 ng/L (0-10)
[2025-06-17 06:46] LABS: INR 1.07 (0.8-1.2); Prothrombin Time 14.70 SECONDS (12.1-14.9)
[2025-06-17] MEDS: linezolid premix 600 MG/300 ML PREMIX 300 MG IV (06:48)
[2025-06-17 06:52] LABS: Alanine Aminotransferase 21 U/L (0-33); Albumin Level 3.7 g/dL (3.5-5.2); Alkaline Phosphatase 65 U/L (35-105); Anion Gap 19.9 (5-19); Aspartate Amino Transferase 21 U/L (0-32); Blood Urea Nitrogen 14 mg/dL (6-20); Calcium 9.0 mg/dL (8.5-10.5); Carbon Dioxide 19 mmol/L (22-29); Chloride 106 mmol/L (98-107); Globulin 3.9 g/dL (1.3-4.6); Glucose 102 mg/dL (65-115); Lipase 31 U/L (13-60); NT Pro B Type Natriuretic Pept 72 pg/mL (0-125); Osmolality Calculated 293 mOsm/kg (285-295); Potassium 3.9 mmol/L (3.5-5.1); Sodium 141 mmol/L (136-145); Total Protein 7.6 g/dL (6.6-8.7)
[2025-06-17 07:07] LABS: Lactic Sepsis W/Reflex 0.9 mmol/L (0.5-2.2)
--- NOTE | 2025-06-17 07:07 | CTR_ITS ---
PROCEDURE INFORMATION: Exam: CTA Chest With Contrast Exam date and time: 06/17/2025 7:30 AM Age: 55 years old Clinical indication: Angina pectoris; PT arrives with C/O chest pain. Pt's stated it starts in her left chest and radiates into her back. PT stated her cp started a few days ago. Pt's stated she had her parathyroid removed and she has kidney stones. Pt's stated she started to C/O not feeling good for the past few days. PT stated her hr elevates when she takes short breaths. ; Additional info: Chest pain, tachycardia TECHNIQUE: Imaging protocol: Computed tomographic angiography of the chest with contrast. Exam focused on the arteries. 3D rendering (Not supervised by radiologist): MIP and/or 3D reconstructed images were created by the technologist. Radiation optimization: All CT scans at this facility use at least one of these dose optimization techniques: automated exposure control; mA and/or kV adjustment per patient size (includes targeted exams where dose is matched to clinical indication); or iterative reconstruction. Contrast material: OMNI 350; Contrast volume: 100 ml; Contrast route: INTRAVENOUS (IV); COMPARISON: CR (CHEST, ) 06/17/2025 5:58 AM RADIATION DOSE METRICS: Total DLP (mGy-cm): 1646 FINDINGS: Pulmonary arteries: Central pulmonary embolus, right greater than left. There is thrombus within the right and left main pulmonary arteries and branch vessels. Thrombus burden is large. Aorta: Unremarkable. No aortic aneurysm. No aortic dissection. Lungs: Bibasilar opacities, left greater than right, atelectasis and or infiltrate versus developing pulmonary infarcts. Pleural spaces: Unremarkable. No pneumothorax. No pleural effusion. Heart: See Pulmonary arteries finding. Heart RV/LV ratio: RV LV ratio is approximately 1. No CT findings of right heart strain. Lymph nodes: Unremarkable. No enlarged lymph nodes. Gallbladder and biliary ducts: Cholecystectomy. Kidneys: Renal calculi. Bones/joints: Unremarkable. No acute fracture. Soft tissues: Unremarkable. CT/CT angio chest PE protcl [id number] IMPRESSION: Extensive pulmonary embolus. Thrombus is seen within the right and left main pulmonary arteries as well as more distal branch vessels.
--- NOTE | 2025-06-17 07:08 | CTR_ITS ---
PROCEDURE INFORMATION: Exam: CT Abdomen And Pelvis With Contrast Exam date and time: 06/17/2025 7:30 AM Age: 55 years old Clinical indication: Abdominal pain; Additional info: History of kidney stones TECHNIQUE: Imaging protocol: Computed tomography of the abdomen and pelvis with contrast. Radiation optimization: All CT scans at this facility use at least one of these dose optimization techniques: automated exposure control; mA and/or kV adjustment per patient size (includes targeted exams where dose is matched to clinical indication); or iterative reconstruction. Contrast material: [id number]; Contrast volume: 100 ml; Contrast route: INTRAVENOUS (IV); COMPARISON: CT abdomen pelvis wo/w [id number] 11/20/2021 10:06 AM RADIATION DOSE METRICS: Total DLP (mGy-cm): 1125.6 FINDINGS: Lungs: Atelectatic changes in the left lung base. Liver: Normal. No mass. Gallbladder and biliary ducts: Cholecystectomy. Pancreas: Normal. No ductal dilation. Spleen: Normal. No splenomegaly. Adrenal glands: Normal. No mass. Kidneys and ureters: Bilateral renal cysts. Bilateral renal calculi. Stomach and bowel: Unremarkable. No obstruction. No mucosal thickening. Appendix: No evidence of appendicitis. Intraperitoneal space: Unremarkable. No free air. No significant fluid collection. Vasculature: Retroaortic left renal vein. Lymph nodes: Unremarkable. No enlarged lymph nodes. Urinary bladder: Unremarkable as visualized. Reproductive: Unremarkable as visualized. Bones/joints: Unremarkable. No acute fracture. Soft tissues: Unremarkable. CT/CT abdomen pelvis w con* [id number] IMPRESSION: Moderate opacity at the left lung base. COMMENTS: Consistent with the [employer]'s Incidental Findings Committee white paper (J Am Kitty Radiol 2018): Any incidental renal lesion less than 1 cm or classified as too small to characterize, or any incidental cystic renal lesion characterized as simple-appearing, is likely benign. No follow-up imaging is recommended for these lesions per consensus recommendations based on imaging criteria.
[2025-06-17 07:16] LABS: Procalcitonin 0.10 ng/mL (0-0.5)
[2025-06-17 07:19] LABS: Partial Thromboplastin Time 25.8 SECONDS (23.9-36.7)
[2025-06-17] MEDS: iohexol 350 mg/mL 500 mL Btl (per mL) IV (07:57)
--- NOTE | 2025-06-17 07:58 | ECG_ITS ---
[facility] Test Date: 2025-06-17 Pat Name: Sierra Layne Department: Room: ED Gender: Female Etl Consultant: : 1970 Requested By: Nadege Terry Order Number: [id number] Hilary MD: Jason Cobos M.D. Measurements Intervals [place] Rate: 99 P: 26 DC: 128 QRS: 15 QRSD: 81 T: 30 QT: 356 QTc: 458 Interpretive Statements SINUS RHYTHM Possible left atrial enlargement LOW QRS VOLTAGE IN PRECORDIAL LEADS [QRS DEFLECTION < 1.0 mV IN CHEST LEADS] Compared to ECG 06/17/2025 05:53:35 Low QRS voltage now present Sinus tachycardia no longer present ST (T wave) deviation no longer present Electronically Signed On 06-18-2025 21:00:41 CAMPAIGN MANAGEMENT SENIOR MANAGER by Jason Cobos M.D. [email or web address]
[2025-06-17 08:37] LABS: Troponin 5 2HR 19.18 ng/L (0-10); Troponin 5 2HR Delta 3.18 ABS# (0-10)
--- NOTE | 2025-06-17 08:56 | PM.HP ---
Providers/Chief Complaint Primary Care Provider: Imer De Jesus MD Chief Complaint: Chest Pains History of Present Illness Sierra Layne is a 55 year old female with history significant for hypertension and DVT(on indefinite anticoagulation) who presents with complaints of chest pain. She mentions she has been out of her Xarelto for the past 3 weeks and was in her usual state of health without chest pain or shortness of breath at her last dose. However, over the past two days, patient and family present mention she has been off. She reports recent episodes of chest pain across the chest and has moved to the left chest and down the back. She also reports chest pain with deep inspiration and thus has been taking shallow breaths. This morning, family notes she was significantly short of breath. With these complaints, family delivered her to the ED for further evaluation and management. Of note, her Medications/Allergies Home Medications ?Medication ?Instructions ?Recorded ?Confirmed ?Last Taken ?Type aspirin 81 mg tablet,delayed 81 mg PO DAILY 04/28/20 04/18/25 Unknown History release cholecalciferol (vitamin D3) 25 25 mcg PO DAILY 04/28/20 04/18/25 Unknown History mcg (1,000 unit) capsule lisinopril 10 mg tablet (Zestril) 10 mg PO DAILY 04/28/20 04/18/25 Unknown History medroxyprogesterone 150 mg/mL IM .every three months 04/28/20 04/18/25 Unknown History intramuscular suspension (Depo-Provera) multivitamin with minerals-folic mcg PO 04/28/20 04/18/25 Unknown History acid 200 mcg chewable tablet (Women's Multivitamin Gummies) cranberry fruit concentrate 250 mg 250 mg PO TID PRN 09/24/21 04/18/25 Unknown History chewable tablet (Azo Cranberry) rivaroxaban 10 mg tablet (Xarelto) 10 mg PO 10/18/24 04/18/25 Unknown History magnesium 200 mg tablet 200 mg PO DAILY 06/17/25 06/17/25 06/16/25 History Allergies Allergy/AdvReac Type Severity Reaction Status Date / Time Sulfa (Sulfonamide Allergy Swelling Verified 10/18/24 10:17 Antibiotics) and blistering of lip PFSH Acute PFSH: Medical History (Updated 06/17/25 @ 09:19 by Alvaro Ball MD) Medullary sponge kidney Bilateral renal stones Gross hematuria History of DVT (deep vein thrombosis) X 2 2010 and 2020 In 2010 after her left knee surgery she had a blood clot and was told that this was secondary to surgery. Was on blood thinners for about 6 months and was told she did not need lifelong anticoagulation. Chronic hypertension Diagnosed in 2012 and follows up with PMD. 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 No pertinent past medical history Denies diabetes, asthma, seizures, DVT/PE PCP: Dr. De Jesus Surgical History S/P cholecystectomy Laparoscopic procedure done at the age of 25 S/P laparoscopy laparoscopic procedure to try to identify cause of infertility but she states that everything was normal. S/P parathyroidectomy Unilateral parathyroidectomy in June 2017. Done in [place]. Status post surgery Skin cancer removal from face by Dr. Fuller--multiple History of vaginal surgery 1983-Performed in [place], [place] at the age of 14. -patient states that she had vaginal reconstructive surgery done through her abdomen and vagina to connect the uterus to her vagina. We have requested for these records multiple times however have never received them and it is likely that they do not have these records anymore. S/P left knee arthroscopy for torn meniscus Status post surgical removal of ganglion cyst from vaughn aspect of right hand S/P hemorrhoidectomy 09/11/2009- Dx: thrombosed external hemorrhoids. Performed by Dr Randle at [facility] in [place], [place]. Family History Mother Hypertension Sister Hypertension Family/Other Diabetes paternal uncle Breast cancer 2 paternal cousins, diagnosed in their mid 40s to early 50s Grandfather Stroke paternal Denies family history of Colon cancer Ovarian cancer Heart disease Uterine cancer Thyroid disease Social History Smoking and tobacco/nicotine status: never used tobacco/nicotine Vitals/I&O/Wt Last Vital Signs Temp 97.9 F 06/17/25 05:48 Pulse 101 H 06/17/25 08:23 Resp 17 06/17/25 08:23 BP 119/88 06/17/25 08:23 Pulse Ox 96 06/17/25 08:23 O2 Del Method Nasal Cannula 06/17/25 08:23 O2 Flow Rate 4 06/17/25 08:23 06/16/25 06/17/25 06/17/25 22:59 06:59 14:59 Intake Total 1000 / 1000 Balance 1000 / 1000 Weight last 48 hrs Weight 113.398 kg Physical Exam Const: COMMON NORMALS: no acute distress and patient oriented x3 Resp: COMMON NORMALS: normal respiratory effort, No retractions and No use of accessory muscles Cardio: COMMON NORMALS: regular rate, regular rhythm, S1 normal heart sound present, S2 normal heart sound present, No gallops present (Cardio), No clicks present (Cardio), No murmurs present (Cardio) and No rub (Cardio) GI: COMMON NORMALS: Normal to inspection, nondistended, normoactive bowel sounds present Neuro: COMMON NORMALS: patient oriented x3, CN's II-XII intact bilaterally and moves all extremities Skin: COMMON NORMALS: no rashes or lesions noted Data 06/17/25 06:11 06/17/25 06:11 Micro: Microbiology 06/17/25 06:44 Blood Culture - Preliminary Blood SPECIMEN COLLECTED 06/17/25 06:42 Blood Culture - Preliminary Blood SPECIMEN COLLECTED A&P Assessment and plan 1. Other acute pulmonary embolism without acute cor pulmonale: - Per the simplified PESI, she is a high risk patient with her hypoxia, 87% on room air - Will place on heparin infusion for the time being but can probably transition to treatment doses of Xarelto in the next day or so, 15mg BID for 21 days followed by 20mg daily - BNP and troponin level reviewed. Not significantly elevated - CT does not demonstrate evidence of right heart strain per communication with ED physician 2. Acute hypoxic respiratory failure: - 87% on room air with ambulation - Maintain O2 saturation >92%. Wean as tolerated 3. Medical non-compliance: PDMP PDMP Reviewed: Not Reviewed Attestations Medical Necessity Statement*: Patient anticipated to require greater than two midnights to manage her acute hypoxic respiratory failure Coding Level of Care Code Acute Code for Chg Fwd Diagnoses Other acute pulmonary embolism without acute cor pulmonale I26.99 Pulmonary embolism type: other Chronicity: acute Acute cor pulmonale presence: without acute cor pulmonale Acute hypoxic respiratory failure J96.01 Medical non-compliance Z91.199
[2025-06-17] MEDS: heparin 5,000 unit/mL INJ 1 mL IVP (09:04)
[2025-06-17] MEDS: heparin drip 25,000 UNIT/500 ML PREMIX 27.22 UNIT IV (09:05)
[2025-06-17 10:59] LABS: Partial Thromboplastin Time 206.7 SECONDS (23.9-36.7)
--- NOTE | 2025-06-17 11:08 | PC.NURSE ---
HOSPITALIST CONTACTED FOR PT CRITICAL PTT RESULT (206.7) PER VERBAL ORDER FROM HOSPITALIST TO HOLD HEPARIN DRIP UNTIL 6 HOUR PTT REDRAW RESULTS.
[2025-06-17 13:10] LABS: Troponin 5 6HR 17.99 ng/L (0-10); Troponin 5 6HR Delta 1.99 ng/L (0-12)
[2025-06-18] VITALS (8 sets, daily range): BP systolic 123–145; BP diastolic 70–88; PULSE 83–121; RESP 17–18; TEMP 36.6–36.8; O2SAT 88–98; BMI 37.5
[2025-06-18 05:47] LABS: Hematocrit 39.2 % (36-47); Hemoglobin 12.30 g/dL (11.27-16.99); Mean Corpuscular HGB Conc 31.4 g/dL (30-55); Mean Corpuscular Hemoglobin 27.6 pg (27-33); Mean Corpuscular Volume 88.1 fl (85-98); Nucleated Red Blood Cells % 0 %; Platelet Count 258 10^3/cmm (157-399); Red Blood Count 4.45 10^6/uL (3.85-5.65); White Blood Count 12.77 10^3/uL (3.29-11.43)
[2025-06-18 06:05] LABS: Anion Gap 17.2 (5-19); Blood Urea Nitrogen 11 mg/dL (6-20); Calcium 8.4 mg/dL (8.5-10.5); Carbon Dioxide 22 mmol/L (22-29); Chloride 104 mmol/L (98-107); Glucose 98 mg/dL (65-115); Osmolality Calculated 287 mOsm/kg (285-295); Potassium 4.2 mmol/L (3.5-5.1); Sodium 139 mmol/L (136-145)
--- NOTE | 2025-06-18 08:59 | PC.NURSE ---
approx. 0710 nurse entered pts room with noc nurse and pt requested nurse to remove cont. o2 monitor, removed per pt request.
--- NOTE | 2025-06-18 09:06 | PC.CHAP ---
Pastoral Care Encounter/Spiritual Assessment Type of Contact [] Declined mast maker visit [] Patient/Family/Request visit [] Outpatient visit [] Follow-up visit [] Physician referral [] Code/Alert [x] Routine visit [] Staff referral [] Actively dying [] Patient sleeping [x] Family support [] [] Out of room [] Palliative care [] [] Receiving care in room [] Pre-surgical visit [] Trauma [] Long length of stay [] ICU visit [] Other: Relational/Emotional Strength [x] Patient feels connected with others/family/visitors/staff [] Distress [] Loneliness/isolation [] Abandonment Spirituality of Patient [x] Person of Zuleyka [] Attends Sabianism of their [place]ka [x] Believes in Prayer [] Reads Bible or Mormon materials [] There are Spiritual issues to be addressed Route Sales Person Interventions [x] Prayer [x] Active listening [] Non-anxious presence [x] Spiritual/emotional support [] Crisis/trauma care [] Spiritual counseling [] Bereavement support [] Provided bereavement packet [] Provided Bible/devotional materials [] Provided toy/stuffed animal, coloring book to patient or family member [] Provided Communion [] Anointing/[place] [] Salvation [x] Completed spiritual assessment [] Other: Impact on Illness or Injury [] Angry [] Fearful [] Anxious [] Often cries [] Exhaustion [] Unable to work [] Unable to attend uatsdin [] Unable to walk/stand [] Unable to read [] Unable to drive [] Unable to eat/drink [] Unable to sleep [] Unable to be with family [] Patient intubated [] Other: Summary Time spent with patient 5 min
--- NOTE | 2025-06-18 12:39 | USCV_ITS ---
Sierra Layne Age: 55 Gender: F : 1970 Exam Date: 06/18/2025 14:18 Ordering Phys: Julia Archer MD Technologist: Exam Location: [facility] Indication: rv strain ef BP: 120 / 70 HR: Rhythm: Sinus Technical Quality: Adequate MEASUREMENTS (Male / Female) Normal Values 2D ECHO LV Diastolic Diameter PLAX 3.5 cm 4.2 - 5.9 / 3.9 - 5.3 cm IVS Diastolic Thickness 1.4 cm 0.6 - 1.0 / 0.6 - 0.9 cm IVS Systolic Thickness 1.8 cm LVPW Diastolic Thickness 1.3 cm 0.6 - 1.0 / 0.6 - 0.9 cm LVPW Systolic Thickness 1.6 cm LVOT Diameter 2.0 cm LV Ejection Fraction 2D Teich 63.0 % LV Ejection Fraction MOD 4C 68.9 % LV Ejection Fraction MOD 2C 60.7 % LV Ejection Fraction 2C AL 59.8 % LA Diameter 2.8 cm IVC Diameter 1.6 cm M-MODE LA Ao Ratio MM 1.3 AV Cusp Separation MM 2.5 cm DOPPLER TR Peak Velocity 173.0 cm/s TR Peak Gradient 12.0 mmHg FINDINGS Left Ventricle Normal left ventricular size and systolic function, EF 69%.. Mild left ventricular hypertrophy. No regional wall motion abnormalities. Right Ventricle Possibly normal RV size and ejection fraction Right Atrium Possibly of normal size Left Atrium Normal left atrial size. IA Septum Not visualized well Mitral Valve No gross abnormalities noted Aortic Valve No gross abnormalities no Tricuspid Valve Tricuspid valve not well visualized. Trace tricuspid valve regurgitation. Pulmonic Valve Pulmonic valve not well visualized. Pericardium No pericardial effusion. Aorta Normal aortic annulus size. IVC Inferior vena cava not visualized. CONCLUSIONS Normal left ventricular size and systolic function, EF 69%.. Mild left ventricular hypertrophy. No regional wall motion abnormalities. Possibly normal RV size and ejection fraction. Right atrium, possibly of normal size. Could not be visualized well Trace tricuspid valve regurgitation. Possibly normal PA pressure, could not calculate properly due to poor Doppler signals Normal left atrial size. There is no pericardial effusion. No similar previous studies are available for comparison. Dr Jason Cobos MD FACC (Electronically Signed) Final Date: 18 June 2025 22:06 S
--- NOTE | 2025-06-18 15:44 | PM.PN ---
Subjective Subjective: The patient was seen in the morning, did not report any chest pain or shortness of breath Still having mild tachycardia CT angio report reviewed although did not mention any heart strain, but having RV to LV ratio of 1 therefore considering her tachycardia bilateral pulmonary embolism consulted pulmonology for further management Echo requested Vitals/I&O/Wt Last Vital Signs Temp 98.2 F 06/18/25 15:24 Pulse 110 H 06/18/25 15:24 Resp 18 06/18/25 15:24 BP 123/70 06/18/25 15:24 Pulse Ox 90 06/18/25 15:24 O2 Del Method Nasal Cannula 06/18/25 11:43 O2 Flow Rate 1 06/18/25 11:43 06/18/25 06/18/25 06/18/25 06:59 14:59 22:59 Intake Total 440 / 440 Output Total 200 / 400 Balance -200 / 2457.162 440 / 440 Weight last 48 hrs Weight 118.841 kg Weight 118.206 kg Weight 113.398 kg Physical Exam Narrative: General: Alert and oriented, lying comfortably without any distress on oxygen supplementation 1 to 2 L per nasal cannula HEENT: Normocephalic, atraumatic, grossly unremarkable exam Cardio: Sinus tachycardia, normal S1-S2 without any murmurs, rubs, or gallops and JVD normal Respiratory: normal vascular breathing on auscultation without any wheezes, stridor, rhonchi GI: Abdomen soft, nontender, nondistended, normoactive bowel sounds present all 4 quadrants, Neuro: intact cranial nerves motor and sensory and cerebellar/coordination function without any focal neurological deficit Behavior: Appropriate and cooperative Extremities: Adequate palpable pulses, mild trace edema which is relatively more on the left leg Data 06/18/25 05:29 06/18/25 05:29 Micro: Microbiology 06/17/25 06:44 Blood Culture - Preliminary Blood NEGATIVE TO DATE 06/17/25 06:42 Blood Culture - Preliminary Blood NEGATIVE TO DATE A&P Assessment and plan 1. Acute hypoxic respiratory failure: High likely secondary to acute pulmonary embolism Episode triggered due to medication compliance, patient was taking Xarelto for her DVT but did not take it for the last 3 weeks Continue oxygen supplementation Pulmonology consulted for further management for PE Echo requested and to follow Monitor hemodynamics 2. Other acute pulmonary embolism without acute cor pulmonale: CT report reviewed, patient having bilateral pulmonary embolism with LV to RV ratio 1. Continue anticoagulation with enoxaparin twice daily full dose anticoagulation Pulmonology consulted and to follow the plan of care Echo requested to follow the report Continue oxygen therapy through nasal cannula to maintain O2 sats above 92% 3. History of DVT (deep vein thrombosis): Patient had history of left leg DVT however she did not take her medication 30 Xarelto from the last 3 weeks Continue on enoxaparin weight-based full dose anticoagulation To switch to Xarelto after 20 to 48 hours however awaited pulmonary recommendations 4. Chronic hypertension: Continue home dose lisinopril 10 mg daily Continue to monitor blood pressure Currently more or less in the normal range 5. History of primary hyperparathyroidism: Patient following with operations general agent last in April Currently stable Plan: VTE: Enoxaparin 100 mg twice daily Regular diet PDMP PDMP Reviewed: Not Reviewed Attestations Medical Necessity Statement*: Patient with history over midnight for the management of high risk pulmonary embolism requiring oxygen and having sinus tachycardia, awaited partition assembly machine operator recommendation Time Spent in Patient Care: 16 - 35 minutes (>than 50% of time spent in counselling and/or direct pt care on unit). Other Attestations: Patient condition has been discussed at length with the patient/family, I have independently reviewed the chart labs imaging/diagnostics/EKG. the goals of care and code status with the patient/family/NOK/legal jewelry sales representative, and documented accordingly. The management has been done according to the current clinical condition with respect to patient goals of care and based on recommendations/guidelines. The patient/family has been informed about the current condition and further plan of care. Agreed with the plan of care and understood without any language barrier. Every effort was made to ensure accuracy of area field worker. Any obvious errors or omissions should be clarified with the author of the document. Coding Level of Care Code 46788 Diagnoses Acute hypoxic respiratory failure J96.01 Other acute pulmonary embolism without acute cor pulmonale I26.99 Acute cor pulmonale presence: without acute cor pulmonale Chronicity: acute Pulmonary embolism type: other History of DVT (deep vein thrombosis) Z86.718 Chronic hypertension I10 History of primary hyperparathyroidism Z86.39
--- NOTE | 2025-06-18 18:30 | PM.CONSULT ---
Providers/Reason For Consult Consulting Physician/Specialty*: Dr. Dumont Reason for Consult*: Acute PE Attending Physician: Julia Archer MD Primary Care Provider: Imer De Jesus MD History of Present Illness History of Present Illness Sierra Layne is a 55 year old female With past medical history of multiple DVTs comes in planing of chest pain. She has been out of her Xarelto for the last 3 weeks and noticed increased chest pain and shortness of breath. She was brought to the ED, CT chest with multiple pulmonary emboli with. Lovenox started. She is currently on room air not complaining of any increased chest pain or shortness of breath. Echocardiogram pending. Medications/Allergies Home Medications ?Medication ?Instructions ?Recorded ?Confirmed ?Last Taken ?Type aspirin 81 mg tablet,delayed 81 mg PO DAILY 04/28/20 06/17/25 06/16/25 History release cholecalciferol (vitamin D3) 25 25 mcg PO DAILY 04/28/20 06/17/25 06/16/25 History mcg (1,000 unit) capsule lisinopril 10 mg tablet (Zestril) 10 mg PO DAILY 04/28/20 06/17/25 06/16/25 History medroxyprogesterone 150 mg/mL 150 mg IM .every three months 04/28/20 06/17/25 06/11/25 History intramuscular suspension (Depo-Provera) multivitamin with minerals-folic 200 mcg PO DAILY 04/28/20 06/17/25 06/16/25 History acid 200 mcg chewable tablet (Women's Multivitamin Gummies) cranberry fruit concentrate 250 mg 250 mg PO TID PRN Bladder health 09/24/21 06/17/25 06/16/25 History chewable tablet (Azo Cranberry) rivaroxaban 10 mg tablet (Xarelto) 10 mg PO DAILY 10/18/24 06/17/25 06/16/25 History acetaminophen 500 mg tablet 1,000 mg PO Q6H PRN Fever Or Pain 06/17/25 06/17/25 06/15/25 History (Tylenol Extra Strength) magnesium 200 mg tablet 200 mg PO DAILY 06/17/25 06/17/25 06/16/25 History Allergies Allergy/AdvReac Type Severity Reaction Status Date / Time Sulfa (Sulfonamide Allergy Swelling Verified 10/18/24 10:17 Antibiotics) and blistering of lip Current Medications Generic Name Dose Route Start Last Admin Trade Name Freq PRN Reason Stop Dose Admin Aspirin 81 mg 06/18/25 05:00 06/18/25 05:02 Aspirin 81 Mg Ec Tablet PO 81 mg DAILY NENO Administration Enoxaparin Sodium 100 mg 06/17/25 19:00 06/18/25 17:53 Enoxaparin 100 Mg/Ml Syringe SUBCUT 100 mg Q12H NENO Administration Lisinopril 10 mg 06/18/25 05:00 06/18/25 05:03 Lisinopril 10 Mg Tablet PO 10 mg DAILY NENO Administration Magnesium Oxide 250 mg 06/18/25 05:00 06/18/25 05:02 Magnesium Oxide 400 Mg Tablet PO 250 mg DAILY NENO Administration Oxymetazoline HCl 2 spray 06/18/25 03:10 06/18/25 05:00 Oxymetazoline 0.05% Nasal [place] 15 Ml NOSTRIL-B 06/21/25 03:10 2 spray DAILY PRN Administration CONGESTION Vitamin D 1,000 unit 06/18/25 05:00 06/18/25 05:02 Cholecalciferol (Vitamin D3) 1,000 Unit Tablet PO 1,000 unit DAILY NENO Administration PFSH Acute PFSH: Medical History (Updated 06/18/25 @ 15:46 by Julia Archer MD) Medullary sponge kidney Bilateral renal stones Gross hematuria History of DVT (deep vein thrombosis) X 2 2010 and 2020 In 2010 after her left knee surgery she had a blood clot and was told that this was secondary to surgery. Was on blood thinners for about 6 months and was told she did not need lifelong anticoagulation. Chronic hypertension Diagnosed in 2012 and follows up with PMD. 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 No pertinent past medical history Denies diabetes, asthma, seizures, DVT/PE PCP: Dr. De Jesus Surgical History S/P cholecystectomy Laparoscopic procedure done at the age of 25 S/P laparoscopy laparoscopic procedure to try to identify cause of infertility but she states that everything was normal. S/P parathyroidectomy Unilateral parathyroidectomy in June 2017. Done in [place]. Status post surgery Skin cancer removal from face by Dr. Fuller--multiple History of vaginal surgery 1983-Performed in [place], [place] at the age of 14. -patient states that she had vaginal reconstructive surgery done through her abdomen and vagina to connect the uterus to her vagina. We have requested for these records multiple times however have never received them and it is likely that they do not have these records anymore. S/P left knee arthroscopy for torn meniscus Status post surgical removal of ganglion cyst from vaughn aspect of right hand S/P hemorrhoidectomy 09/11/2009- Dx: thrombosed external hemorrhoids. Performed by Dr Randle at [facility] in [place], [place]. Family History Mother Hypertension Sister Hypertension Family/Other Diabetes paternal uncle Breast cancer 2 paternal cousins, diagnosed in their mid 40s to early 50s Grandfather Stroke paternal Denies family history of Colon cancer Ovarian cancer Heart disease Uterine cancer Thyroid disease Social History Smoking and tobacco/nicotine status: never used tobacco/nicotine Vitals/I&O/Wt Last Vital Signs Temp 98.2 F 06/18/25 15:24 Pulse 110 H 06/18/25 15:24 Resp 18 06/18/25 15:24 BP 123/70 06/18/25 15:24 Pulse Ox 90 06/18/25 15:24 O2 Del Method Nasal Cannula 06/18/25 11:43 O2 Flow Rate 1 06/18/25 11:43 06/18/25 06/18/25 06/18/25 06:59 14:59 22:59 Intake Total 440 / 440 360 / 800 Output Total 200 / 400 Balance -200 / 2457.162 440 / 440 360 / 800 Weight last 48 hrs Weight 262 lb Weight 260 lb 9.6 oz Weight 250 lb Physical Exam Narrative: Per RN General: alert, NAD obese HEENT: EOMI Pulmonary: Clear to auscultation bilaterally Cardiovascular: rrr, nl s1s2, Abdomen: soft, nt, nd, no r/g, Extremities: no edema Neurologic: grossly intact Agree with above exam Data 06/18/25 05:29 06/18/25 05:29 Micro: Microbiology 06/17/25 06:44 Blood Culture - Preliminary Blood NEGATIVE TO DATE 06/17/25 06:42 Blood Culture - Preliminary Blood NEGATIVE TO DATE A&P Assessment and plan 1. History of DVT (deep vein thrombosis): 2. Other acute pulmonary embolism without acute cor pulmonale: Plan: # Acute [id number] Reviewed CT scan of the patient personally myself that shows multiple bilateral PEs right more than left clot burden. Also has left lower lobe pulmonary infarct. I reviewed the images personally myself and explained the patient. Patient's episode of PE is most likely related to underlying clotting disorder although she has never been worked up for that in the past. Recurrent DVTs as well as PE now qualifies her for lifelong anticoagulation. Echocardiogram pending to rule out right heart strain although on my review) recall looks more in size compared to left.. # DVTs/history of multiple DVTs Recurrent DVTs as well as PE now qualifies her for lifelong anticoagulation. I have counseled and explained this to the patient. In detail. # Endometriosis-on medroxyprogesterone shots since the . Patient is on medroxyprogesterone since the . Although there is very low risk associated with this to cause thromboembolic disease. Certainly contraindicated to be given in acute PEs. I will place this medication on hold for now. I have also explained to the patient she needs to touch base with a new circular gang saw operator soon since her previous circular gang saw operator has left town to consider other options. # Hypertension Thank you for the consult Medical decision making level-moderate Moderate MDM includes number and complexity of problems actively addressed during encounter, amount and/or complexity of data reviewed/ordered [ previous or external records, resulted lab(s)/test(s), ordered lab(s)/test(s), independent historian, independent test interpretation and other healthcare professional discussion] and described risk of complication, morbidity or mortality of management as documented This documentation was created by [employer] installation tech software (known for inherent installation tech error). Every effort was made to assure accuracy of installation tech. Any obvious errors or omissions should be clarified with the author of the document PDMP PDMP Reviewed: Not Reviewed Coding Level of Care Code 18452 Diagnoses History of DVT (deep vein thrombosis) Z86.718 Other acute pulmonary embolism without acute cor pulmonale I26.99 Acute cor pulmonale presence: without acute cor pulmonale Chronicity: acute Pulmonary embolism type: other
[2025-06-19] VITALS (7 sets, daily range): BP systolic 108–131; BP diastolic 54–86; PULSE 80–106; RESP 16–18; TEMP 36.6–36.8; O2SAT 91–97
--- NOTE | 2025-06-19 12:39 | P.DS_ITS ---
Discharge Providers Date of Admission: 06/17/25 10:06 Date of Discharge: June 19, 2025 Attending Provider at Admission: Alvaro Ball MD Attending Provider at Discharge: Leeanne Diaz MD Primary Care Provider: Imer De Jesus MD Diagnoses at Discharge Discharge Diagnosis 1. History of DVT (deep vein thrombosis): 2. Other acute pulmonary embolism without acute cor pulmonale: Reason for Visit Reason for Visit: Chest Pains Hospital Course Hospital Course 1. Acute hypoxic respiratory failure: High likely secondary to acute pulmonary embolism--recurrent DVT Patient family states that she has had multiple DVTs in the past. This is fourth episode so she needs to be on lifelong anticoagulation. Anticoagulation has been switched to Eliquis. Prescription provided. Patient was on Xarelto before episode triggered likely secondary to medication n oncompliance. Pulmonary consulted for management of PE. Recommending Eliquis. Echo did not show any RV strain. Patient is also not requiring any oxygen at this time is on room air Will need to follow-up with hematology outpatient 2. Other acute pulmonary embolism without acute cor pulmonale: CT report reviewed, patient having bilateral pulmonary embolism with LV to RV ratio 1. Other management as above. Will be discharged on Eliquis twice daily. 10 mg p.o. twice daily for for 7 days and then 5 mg p.o. twice daily. Not requiring any oxygen. Has been on Depo shots as outpatient, have been discontinued per pulmonary recommendations. Explained that to the patient. 3. History of DVT (deep vein thrombosis): Patient had history of left leg DVT however she did not take her medication 30 Xarelto from the last 3 weeks Now has been switched to Eliquis 4. Chronic hypertension: Continue home dose lisinopril 10 mg daily Continue to monitor blood pressure Currently more or less in the normal range 5. History of primary hyperparathyroidism: Patient following with market research manager last in April Currently stable Currently medically stable for discharge, needs to follow-up with PCP and also with hematology Physical Exam Narrative: Per RN General: alert, NAD obese HEENT: EOMI Pulmonary: Clear to auscultation bilaterally Cardiovascular: rrr, nl s1s2, Abdomen: soft, nt, nd, no r/g, Extremities: mild lle swelling Neurologic: grossly intact Discharge Data Studies Completed and Pending Completed Studies During Hospitalization Category Date Time Status CT abdomen pelvis w con* [id number] Stat Cat Scan 06/17/25 07:08 Completed CTA chest [CT angio chest PE protcl [id number]] Stat Cat Scan 06/17/25 07:07 Completed XR chest 1V portable [id number] Stat Exams 06/17/25 05:58 Completed CV. echo limited [id number] Stat Ultrasound 06/18/25 12:39 Completed Pending at discharge Category Date Time Status Blood Culture Stat Lab 06/17/25 06:44 Results Radiology Impressions Chest X-Ray 06/17/25 05:58 IMPRESSION: Left lower lobe infiltrate. Chest CTA 06/17/25 07:07 IMPRESSION: Extensive pulmonary embolus. Thrombus is seen within the right and left main pulmonary arteries as well as more distal branch vessels. ADDENDUM: 06/17/25824 THIS REPORT CONTAINS FINDINGS THAT MAY BE CRITICAL TO PATIENT CARE. The findings were verbally communicated via telephone conference with NORMAN PARSONS at 8:19 AM HOTEL SERVICE SUPERVISOR on 06/17/2025. The findings were acknowledged and understood. Abdomen/Pelvis CT 06/17/25 07:08 IMPRESSION: Moderate opacity at the left lung base. COMMENTS: Consistent with the [employer]'s Incidental Findings Committee white paper (J Am Kitty Radiol 2018): Any incidental renal lesion less than 1 cm or classified as too small to characterize, or any incidental cystic renal lesion characterized as simple-appearing, is likely benign. No follow-up imaging is recommended for these lesions per consensus recommendations based on imaging criteria. Laboratory Results WBC 12.77 10^3/uL (3.29-11.43) H 06/18/25 05:29 RBC 4.45 10^6/uL (3.85-5.65) 06/18/25 05:29 Hgb 12.30 g/dL (11.27-16.99) 06/18/25 05:29 Hct 39.2 % (36-47) 06/18/25 05:29 MCV 88.1 fl (85-98) 06/18/25 05:29 MCH 27.6 pg (27-33) 06/18/25 05:29 MCHC 31.4 g/dL (30-55) 06/18/25 05:29 RDW 15.0 % (12.1-15.1) 06/18/25 05:29 Plt Count 258 10^3/cmm (157-399) 06/18/25 05:29 MPV 9.1 fL (7.4-10.4) 06/18/25 05:29 Neut % (Auto) 79.1 % 06/18/25 05:29 Lymph % (Auto) 11.7 % 06/18/25 05:29 [place] % (Auto) 7.0 % 06/18/25 05:29 Eos % (Auto) 1.1 % 06/18/25 05:29 Baso % (Auto) 0.5 % 06/18/25 05:29 Neut # (Auto) 10.10 10^3/uL (1.8-7.7) H 06/18/25 05:29 Lymph # (Auto) 1.5 10^3/uL (0.8-4.8) 06/18/25 05:29 [place] # (Auto) 0.9 10^3/uL (0.2-0.9) 06/18/25 05:29 Eos # (Auto) 0.1 10^3/uL (0.0-0.8) 06/18/25 05:29 Baso # (Auto) 0.1 10^3/uL (0.0-0.1) 06/18/25 05:29 Nucleated RBC % (auto) 0 % 06/18/25 05:29 Nucleated RBCs # 0.0 /100WBC 06/18/25 05:29 PT 14.70 SECONDS (12.1-14.9) 06/17/25 06:11 INR 1.07 (0.8-1.2) 06/17/25 06:11 APTT 206.7 SECONDS (23.9-36.7) H* D 06/17/25 10:01 Sodium 139 mmol/L (136-145) 06/18/25 05:29 Potassium 4.2 mmol/L (3.5-5.1) 06/18/25 05:29 Chloride 104 mmol/L (98-107) 06/18/25 05:29 Carbon Dioxide 22 mmol/L (22-29) 06/18/25 05:29 Anion Gap 17.2 (5-19) 06/18/25 05:29 BUN 11 mg/dL (6-20) 06/18/25 05:29 Creatinine 0.7 mg/dL (0.5-0.9) 06/18/25 05:29 GFR Calculation 86.9 mL/min (90-130) L 06/18/25 05:29 Glucose 98 mg/dL (65-115) 06/18/25 05:29 Calculated Osmolality 287 mOsm/kg (285-295) 06/18/25 05:29 Lactic Acid 0.9 mmol/L (0.5-2.2) 06/17/25 06:42 Calcium 8.4 mg/dL (8.5-10.5) L 06/18/25 05:29 Total Bilirubin 1.2 mg/dL (0.15-1.2) 06/17/25 06:11 AST 21 U/L (0-32) 06/17/25 06:11 ALT 21 U/L (0-33) 06/17/25 06:11 Alkaline Phosphatase 65 U/L (35-105) 06/17/25 06:11 Troponin T Baseline 16 ng/L (0-10) H 06/17/25 06:11 Troponin T 120 Minute 19.18 ng/L (0-10) H 06/17/25 08:11 Delta Troponin T 3.18 ABS# (0-10) 06/17/25 08:11 Troponin T Hi Sens 6Hr 17.99 ng/L (0-10) H 06/17/25 12:45 Troponin T Hi Sens 6Hr Delta 1.99 ng/L (0-12) 06/17/25 12:45 NT-Pro-B Natriuret Pep 72 pg/mL (0-125) 06/17/25 06:11 Total Protein 7.6 g/dL (6.6-8.7) 06/17/25 06:11 Albumin 3.7 g/dL (3.5-5.2) 06/17/25 06:11 Globulin 3.9 g/dL (1.3-4.6) 06/17/25 06:11 Lipase 31 U/L (13-60) 06/17/25 06:11 Procalcitonin 0.10 ng/mL (0-0.5) 06/17/25 06:42 Vitals Last Vital Signs Temp 98.2 F 06/19/25 11:46 Pulse 80 06/19/25 11:46 Resp 16 06/19/25 11:46 BP 108/54 06/19/25 11:46 Pulse Ox 93 06/19/25 11:46 O2 Del Method Room Air 06/19/25 08:22 O2 Flow Rate 2 06/19/25 03:46 Discharge Plan Discharge Patient Disposition: Home Condition: Stable Prescriptions: New Eliquis 5 mg tablet 10 mg PO BID Qty: 120 0RF Rx Instructions: 10 mg p.o. twice daily for 7 days and after 7 days -- 5 mg p.o. twice daily continuously Continued cholecalciferol (vitamin D3) 25 mcg (1,000 unit) capsule 25 mcg PO DAILY aspirin 81 mg tablet,delayed release (DR/EC) 81 mg PO DAILY Women's Multivitamin Gummies 200 mcg tablet,chewable 200 mcg PO DAILY lisinopril [Zestril] 10 mg tablet 10 mg PO DAILY Azo Cranberry 250 mg tablet,chewable 250 mg PO TID PRN (Reason: Bladder health) magnesium 200 mg Tablet 200 mg PO DAILY acetaminophen [Tylenol Extra Strength] 500 mg Tablet 1,000 mg PO Q6H PRN (Reason: Fever Or Pain) Discontinued medroxyprogesterone [Depo-Provera] 150 mg/mL suspension 150 mg IM .every three months Xarelto 10 mg tablet 10 mg PO DAILY Referrals: Stalin Cat MD [Hospitalist, Oncology] Imer De Jesus MD [Primary Care Provider, Family Practice] Discharge Diet: Regular Discharge Activity: Increase activity as tolerated Patient Instructions: Opioid Safety, Patient Portal & Abigail Instructions Discharge Attestations Time Spent in Discharge Care*: greater than 30 min Quality Metrics Clinical Quality Measures [ Venous Thromboembolism { Contraindication to Overlap Therapy: Overlap treatment not indicated; VTE Discharge Education: Education about anticoagulant therapy/Care Notes given;}] Coding Level of Care Code Acute Code for Chg Fwd Diagnoses History of DVT (deep vein thrombosis) Z86.718 Other acute pulmonary embolism without acute cor pulmonale I26.99 Acute cor pulmonale presence: without acute cor pulmonale Chronicity: acute Pulmonary embolism type: other
--- NOTE | 2025-06-19 13:01 | PC.NURSE ---
this nurse contacted dr. membreno by phone, confirmed pt was able to be discharged from her end.
== END 2025-06-19 13:05 | disposition home or self-care (01) | DRG 175 ==
LOC: ER 08:35 → ER IP 10:06 → MEDSURG 15:03
PROVIDERS: Admitting Provider Family Medicine; Emergency Provider Emergency Medicine; PCP Family Medicine; Visit Provider Internal Medicine
DX: I26.99 Other pulmonary embolism without acute cor pulmonale (principal); J96.01 Acute respiratory failure with hypoxia; Z86.718 Personal history of other venous thrombosis and embolism; T45.516A Underdosing of anticoagulants, initial encounter; Y92.9 Unspecified place or not applicable; I10 Essential (primary) hypertension; Z90.49 Acquired absence of other specified parts of digestive tract; Z79.82 Long term (current) use of aspirin; Z82.49 Family history of ischemic heart disease and other diseases of the circulatory system; N80.9 Endometriosis, unspecified
CPT/HCPCS: 36415; 71045; 71275; 74177; 80048; 80053; 83605; 83690; 83880; 84145; 84484; 85025; 85610; 85730; 87040; 93005; 93308; 94760; 94762; 96365; 96366; 96367; 96372; 96375; 99285; J1644; J1650; J2020; J2185; J7030; J7040; J9999